=== PATIENT | male | born 1950 | race Caucasian/White ===

== ENCOUNTER → 2017-04-01 10:43 | Outpatient (CLI) | payer OTHER, SELFPAY ==
[2017-04-01 12:41] LABS: Alanine Aminotransferase 40 U/L (12-78); Albumin Level 3.9 gm/dL (3.4-5.0); Albumin/Globulin Ratio 1.3 (1.1-1.8); Alkaline Phosphatase 84 U/L (46-116); Anion Gap 11.4 mEq/L (5-15); Aspartate Amino Transferase 19 U/L (15-37); Bilirubin,Total 1.3 mg/dL (0.2-1.0); Blood Urea Nitrogen 10 mg/dL (7-18); Calcium 8.8 mg/dL (8.5-10.1); Carbon Dioxide 28 mmol/L (21.0-32.0); Chloride 107 mmol/L (98-107); Chol/HDL Ratio 4.3 (1-3.5); Cholesterol 132 mg/dL (140-200); Creatinine,Serum 0.77 mg/dL (0.70-1.30); Estimated Glomerular Filt Rate 102 ml/min (>60); GFR (African American) 123 ML/MIN (>60); Globulin 3.1 gm/dl (1.3-3.2); Glucose 101 mg/dL (74-106); HDL Cholesterol 31 mg/dL (27-67); LDL Cholesterol 78 mg/dL (0-130); Potassium 4.4 mmoL/L (3.5-5.1); Sodium 142 mmol/L (136-145); Triglycerides 116 mg/dL (30-200); VLDL Cholesterol 23 mg/dL (0-40)
== END ==
PROVIDERS: PCP Internal Medicine Adolescent Medicine; Visit Provider Physician Assistant
DX: I25.10 Atherosclerotic heart disease of native coronary artery without angina pectoris (principal); E78.5 Hyperlipidemia, unspecified
CPT/HCPCS: 36415; 80053; 80061

== ENCOUNTER → 2017-09-21 09:42 | Outpatient (CLI) | payer MEDICARE, OTHER, SELFPAY ==
[2017-09-21 10:01] LABS: Basophils % 0.4 % (0.1-2.0); Eosinophils # 0.2 K/mm3 (0.0-0.4); Eosinophils % 2.8 % (0.1-12.0); Hematocrit 45.4 % (42.0-52.0); Hemoglobin 14.6 g/dL (14.1-18.0); Lymphocytes # 1.7 K/mm3 (0.7-4.5); Lymphocytes % 26.5 K/mm3 (10-50); Mean Corpuscular HGB Conc 32.2 g/dL (31.8-35.4); Mean Corpuscular Hemoglobin 30.3 pg (27.0-31.2); Mean Corpuscular Volume 94.4 fl (80-94); Mean Platelet Volume 8.1 fl (7.4-10.4); Monocytes # 0.4 K/mm3 (0.1-1.0); Neutrophils % 64.4 % (37.0-80.0); Platelet Count 198 K/mm3 (142-424); Red Blood Count 4.81 M/mm3 (4.60-6.20); Red Cell Distribution Width 13.5 % (11.5-17.5); White Blood Count 6.3 K/mm3 (4.8-10.8)
[2017-09-21 10:25] LABS: Hemoglobin A1C 5.8 % (0.0-7.0)
[2017-09-21 10:34] LABS: Alanine Aminotransferase 38 U/L (12-78); Albumin Level 3.9 gm/dL (3.4-5.0); Albumin/Globulin Ratio 1.2 (1.1-1.8); Alkaline Phosphatase 92 U/L (46-116); Anion Gap 16.1 mEq/L (5-15); Aspartate Amino Transferase 18 U/L (15-37); Bilirubin,Total 1.7 mg/dL (0.2-1.0); Blood Urea Nitrogen 15 mg/dL (7-18); Calcium 8.6 mg/dL (8.5-10.1); Carbon Dioxide 27 mmol/L (21.0-32.0); Chloride 103 mmol/L (98-107); Chol/HDL Ratio 7.4 (1-3.5); Cholesterol 207 mg/dL (140-200); Creatinine,Serum 0.98 mg/dL (0.70-1.30); Estimated Glomerular Filt Rate 77 ml/min (>60); GFR (African American) 93 ML/MIN (>60); Globulin 3.3 gm/dl (1.3-3.2); Glucose 114 mg/dL (74-106); HDL Cholesterol 28 mg/dL (27-67); LDL Cholesterol 151 mg/dL (0-130); Potassium 4.1 mmoL/L (3.5-5.1); Sodium 142 mmol/L (136-145); Total Protein,Serum 7.2 gm/dL (6.4-8.2); Triglycerides 139 mg/dL (30-200); VLDL Cholesterol 28 mg/dL (0-40)
== END ==
PROVIDERS: Visit Provider Internal Medicine Adolescent Medicine
DX: R73.9 Hyperglycemia, unspecified (principal); E78.5 Hyperlipidemia, unspecified
CPT/HCPCS: 36415; 80053; 80061; 83036; 85025

== ENCOUNTER → 2018-02-02 10:17 | Outpatient (CLI) | payer MEDICARE, SELFPAY ==
[2018-02-02 11:33] LABS: Chol/HDL Ratio 6.8 (1-3.5); Cholesterol 218 mg/dL (140-200); HDL Cholesterol 32 mg/dL (27-67); LDL Cholesterol 163 mg/dL (0-130); Triglycerides 114 mg/dL (30-200); VLDL Cholesterol 23 mg/dL (0-40)
== END ==
PROVIDERS: Visit Provider Physician Assistant
DX: I25.10 Atherosclerotic heart disease of native coronary artery without angina pectoris (principal); E78.5 Hyperlipidemia, unspecified
CPT/HCPCS: 36415; 80061

== ENCOUNTER 2018-02-24 10:00 | Outpatient (RCR) | payer MEDICARE, OTHER, SELFPAY | END 2018-02-24 10:05 | disposition home or self-care (01) | LOC: PT 10:00 | PROVIDERS: Visit Provider Family Medicine | DX: M77.01 Medial epicondylitis, right elbow (principal) | CPT/HCPCS: 97010; 97014; 97035; 97110; 97163; G0283 ==

== ENCOUNTER → 2018-04-20 09:58 | Outpatient (CLI) | payer MEDICARE, OTHER, SELFPAY ==
[2018-04-20 10:33] LABS: Basophils % 0.3 % (0.1-2.0); Eosinophils # 0.1 K/mm3 (0.0-0.4); Eosinophils % 1.4 % (0.1-12.0); Hematocrit 45.7 % (42.0-52.0); Hemoglobin 14.9 g/dL (14.1-18.0); Lymphocytes # 1.7 K/mm3 (0.7-4.5); Lymphocytes % 29.1 % (10-50); Mean Corpuscular HGB Conc 32.7 g/dL (31.8-35.4); Mean Corpuscular Volume 94.8 fl (80-94); Mean Platelet Volume 7.8 fl (7.4-10.4); Monocytes # 0.3 K/mm3 (0.1-1.0); Monocytes % 5.4 % (1.7-9.3); Neutrophils # 3.7 K/mm3 (1.8-7.8); Neutrophils % 63.9 % (37.0-80.0); Platelet Count 200 K/mm3 (142-424); Red Blood Count 4.82 M/mm3 (4.60-6.20); Red Cell Distribution Width 14.2 % (11.5-17.5); White Blood Count 5.8 K/mm3 (4.8-10.8)
[2018-04-20 11:03] LABS: Alanine Aminotransferase 35 U/L (12-78); Albumin Level 3.9 gm/dL (3.4-5.0); Albumin/Globulin Ratio 1.2 (1.1-1.8); Alkaline Phosphatase 84 U/L (46-116); Anion Gap 11.6 mEq/L (5-15); Aspartate Amino Transferase 20 U/L (15-37); Bilirubin,Total 1.6 mg/dL (0.2-1.0); Blood Urea Nitrogen 13 mg/dL (7-18); Calcium 9.3 mg/dL (8.5-10.1); Carbon Dioxide 30 mmol/L (21.0-32.0); Chloride 105 mmol/L (98-107); Chol/HDL Ratio 5.3 (1-3.5); Cholesterol 165 mg/dL (140-200); Creatinine,Serum 0.87 mg/dL (0.70-1.30); Estimated Glomerular Filt Rate 88 ml/min (>60); GFR (African American) 107 ML/MIN (>60); Globulin 3.2 gm/dl (1.3-3.2); Glucose 94 mg/dL (74-106); HDL Cholesterol 31 mg/dL (27-67); LDL Cholesterol 110 mg/dL (0-130); Potassium 4.6 mmoL/L (3.5-5.1); Sodium 142 mmol/L (136-145); Total Protein,Serum 7.1 gm/dL (6.4-8.2); Triglycerides 121 mg/dL (30-200); VLDL Cholesterol 24 mg/dL (0-40)
[2018-04-20 13:07] LABS: Erythrocyte Sedimentation Rate 16 mm/hr (0-20)
[2018-04-20 16:39] LABS: Hemoglobin A1C 5.9 % (0.0-7.0)
[2018-04-21 09:23] LABS: RA Latex Turbid. <10.0 IU/mL (0.0-13.9)
== END ==
PROVIDERS: Visit Provider Internal Medicine Adolescent Medicine
DX: E78.5 Hyperlipidemia, unspecified (principal); R73.9 Hyperglycemia, unspecified; R76.8 Other specified abnormal immunological findings in serum
CPT/HCPCS: 36415; 80053; 80061; 83036; 85025; 85651; 86431

== ENCOUNTER → 2018-10-22 09:41 | Outpatient (CLI) | payer MEDICARE, OTHER, SELFPAY ==
[2018-10-22 10:10] LABS: Basophils % 0.3 % (0.1-2.0); Eosinophils # 0.1 K/mm3 (0.0-0.4); Eosinophils % 1.4 % (0.1-12.0); Hemoglobin 14.1 g/dL (14.1-18.0); Lymphocytes # 1.5 K/mm3 (0.7-4.5); Lymphocytes % 20.6 % (10-50); Mean Corpuscular HGB Conc 32.8 g/dL (31.8-35.4); Mean Corpuscular Volume 94.3 fl (80-94); Mean Platelet Volume 8.1 fl (7.4-10.4); Monocytes # 0.6 K/mm3 (0.1-1.0); Monocytes % 7.8 % (1.7-9.3); Neutrophils # 5.2 K/mm3 (1.8-7.8); Neutrophils % 69.9 % (37.0-80.0); Platelet Count 207 K/mm3 (142-424); Red Blood Count 4.56 M/mm3 (4.60-6.20); Red Cell Distribution Width 13.8 % (11.5-17.5); White Blood Count 7.5 K/mm3 (4.8-10.8)
[2018-10-22 10:42] LABS: Alanine Aminotransferase 29 U/L (12-78); Albumin/Globulin Ratio 1.3 (1.1-1.8); Alkaline Phosphatase 85 U/L (46-116); Anion Gap 12.6 mEq/L (5-15); Aspartate Amino Transferase 18 U/L (15-37); Bilirubin,Total 1.8 mg/dL (0.2-1.0); Blood Urea Nitrogen 16 mg/dL (7-18); Calcium 9.5 mg/dL (8.5-10.1); Carbon Dioxide 31 mmol/L (21.0-32.0); Chloride 104 mmol/L (98-107); Chol/HDL Ratio 5.4 (1-3.5); Cholesterol 162 mg/dL (140-200); Creatinine,Serum 0.91 mg/dL (0.70-1.30); Estimated Glomerular Filt Rate 83 ml/min (>60); GFR (African American) 101 ML/MIN (>60); Globulin 3.2 gm/dl (1.3-3.2); Glucose 97 mg/dL (74-106); HDL Cholesterol 30 mg/dL (27-67); LDL Cholesterol 111 mg/dL (0-130); Potassium 4.6 mmoL/L (3.5-5.1); Sodium 143 mmol/L (136-145); Total Protein,Serum 7.2 gm/dL (6.4-8.2); Triglycerides 106 mg/dL (30-200); VLDL Cholesterol 21 mg/dL (0-40)
[2018-10-22 11:41] LABS: Hemoglobin A1C 5.7 % (0.0-7.0)
== END ==
PROVIDERS: Visit Provider Internal Medicine Adolescent Medicine
DX: E78.5 Hyperlipidemia, unspecified (principal); R73.9 Hyperglycemia, unspecified; M31.6 Other giant cell arteritis
CPT/HCPCS: 36415; 80053; 80061; 83036; 85025

== ENCOUNTER → 2018-12-08 15:34 | Outpatient (CLI) | payer MEDICARE, OTHER, SELFPAY ==
--- NOTE | 2018-12-08 15:39 | XR_ITS ---
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 No acute fracture or dislocation evident. Incidental note is made of mild osteoarthritis of the left hip with an atypical articulation of the facet on the left at S1-S2. There is an os acetabulum on the right IMPRESSION: Mild osteoarthritis of the right hip with incidental findings as described above Dictated by: Kenroy Dunn MD 12/08/2018 16:24 Electronically signed by Kenroy Dunn MD in [place] 12/08/2018 16:24
== END ==
PROVIDERS: PCP Internal Medicine Adolescent Medicine; Visit Provider Internal Medicine Adolescent Medicine
DX: M25.551 Pain in right hip (principal)
CPT/HCPCS: 73502

== ENCOUNTER → 2018-12-14 12:48 | Outpatient (CLI) | payer MEDICARE, OTHER, SELFPAY ==
--- NOTE | 2018-12-14 12:50 | XR_ITS ---
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 Left femoral neck density is 1.047 grams/centimeters sq with a T-score of -0.2 IMPRESSION: Normal bone density with low fracture risk. Suggest follow-up exam December 2020 Dictated by: Kenroy Dunn MD 12/14/2018 16:14 Electronically signed by Kenroy Dunn MD in [place] 12/14/2018 16:14
== END ==
PROVIDERS: PCP Internal Medicine Adolescent Medicine; Visit Provider Internal Medicine Adolescent Medicine
DX: Z13.820 Encounter for screening for osteoporosis (principal); Z79.52 Long term (current) use of systemic steroids
CPT/HCPCS: 77080

== ENCOUNTER 2019-01-25 09:00 | Outpatient (RCR) | payer MEDICARE, OTHER, SELFPAY | END 2019-01-25 09:05 | disposition home or self-care (01) | LOC: PT 09:00 | PROVIDERS: PCP Internal Medicine Adolescent Medicine; Visit Provider Orthopaedic Surgery | DX: M16.11 Unilateral primary osteoarthritis, right hip (principal); M47.811 Spondylosis without myelopathy or radiculopathy, occipito-atlanto-axial region | CPT/HCPCS: 97010; 97014; 97110; 97163; G0283 ==

== ENCOUNTER → 2019-05-24 10:53 | Outpatient (CLI) | payer MEDICARE, OTHER, SELFPAY ==
[2019-05-24 11:16] LABS: Basophils % 0.4 % (0.1-2.0); Eosinophils # 0.2 K/mm3 (0.0-0.4); Eosinophils % 2.3 % (0.1-12.0); Hematocrit 44.7 % (42.0-52.0); Hemoglobin 14.7 g/dL (14.1-18.0); Lymphocytes # 1.7 K/mm3 (0.7-4.5); Lymphocytes % 25.8 % (10-50); Mean Corpuscular HGB Conc 32.8 g/dL (31.8-35.4); Mean Corpuscular Hemoglobin 30.8 pg (27.0-31.2); Mean Corpuscular Volume 93.8 fl (80-94); Mean Platelet Volume 7.8 fl (7.4-10.4); Monocytes # 0.4 K/mm3 (0.1-1.0); Monocytes % 5.8 % (1.7-9.3); Neutrophils # 4.4 K/mm3 (1.8-7.8); Neutrophils % 65.7 % (37.0-80.0); Platelet Count 216 K/mm3 (142-424); Red Blood Count 4.77 M/mm3 (4.60-6.20); Red Cell Distribution Width 14.3 % (11.5-17.5); White Blood Count 6.7 K/mm3 (4.8-10.8)
[2019-05-24 12:10] LABS: Chloride 102 mmol/L (98-107); Potassium 4.9 mmoL/L (3.5-5.1); Sodium 138 mmol/L (136-145)
[2019-05-24 12:13] LABS: Alanine Aminotransferase 24 U/L (12-78); Albumin Level 4.5 g/dl (3.5-5.0); Albumin/Globulin Ratio 1.7 (1.1-1.8); Alkaline Phosphatase 61 U/L (38-126); Anion Gap 12.9 mEq/L (5-15); Aspartate Amino Transferase 26 U/L (17-59); Bilirubin,Total 1.3 mg/dl (0.2-1.3); Blood Urea Nitrogen 14 mg/dl (9-20); Calcium 9.7 mg/dl (8.4-10.2); Carbon Dioxide 28 mmol/L (22.0-30.0); Cholesterol 158 mg/dl (140-200); Estimated Glomerular Filt Rate 97 ml/min (>60); GFR (African American) 117 ML/MIN (>60); Globulin 2.6 g/dL (1.3-3.2); Glucose 103 mg/dl (74-100); Total Protein,Serum 7.1 g/dl (6.3-8.2); Triglycerides 120 mg/dl (30-150); VLDL Cholesterol 24 mg/dL (0-40)
[2019-05-24 12:14] LABS: Chol/HDL Ratio 5.4 (1-3.5); HDL Cholesterol 29 mg/dl (40-60)
[2019-05-24 12:25] LABS: Direct LDL Cholesterol 136.79 mg/dL (100-129)
[2019-05-25 07:18] LABS: RA Latex Turbid. 11.5 IU/mL (0.0-13.9)
== END ==
PROVIDERS: Visit Provider Internal Medicine Adolescent Medicine
DX: E78.5 Hyperlipidemia, unspecified (principal); M15.0 Primary generalized (osteo)arthritis; R76.8 Other specified abnormal immunological findings in serum
CPT/HCPCS: 36415; 80053; 80061; 85025; 86431

== ENCOUNTER → 2019-06-05 07:57 | Outpatient (POV) | payer MEDICARE, OTHER, SELFPAY ==
[2019-06-05 08:16] VITALS: BP 127/85; PULSE 60; RESP 18; TEMP 36.6; O2SAT 98; BMI 33.9
--- NOTE | 2019-06-05 09:54 | HMH.PMCON ---
Assessment and Plan (1) Sacroiliitis Current visit: Yes Status: Chronic Category: Medical Code(s): M46.1 - Sacroiliitis, not elsewhere classified (2) Myofascial pain syndrome Current visit: Yes Status: Chronic Category: Medical Code(s): M79.18 - Myalgia, other site (3) Piriformis muscle pain Current visit: Yes Status: Chronic Category: Medical Code(s): M79.18 - Myalgia, other site - Assessment and plan all Dx Assessment and Plan for all problems:: We will set the patient up for right SI joint injection right piriformis injection. We will follow-up with the patient after this reassess his symptoms at that time he is been instructed to call the office if he has any issues prior to his next appointment. We specifically discussed risk factors for Covid-19 including age, heart or lung disease, diabetes, immunosuppression and travel. We also discussed that NSAIDs may worsen Covid-19 infection symptoms and that they should not be used to treat Covid-19 symptoms. Patient was also informed that corticosteroids in any form oral or injectable will decrease immune response and may increase risk of Covid-[address] Serrano has reviewed this patient's chart and this note and agrees with plan of care. Patient has been instructed to call the office if they have any issues prior to the next appointment. HPI - Data of Consult Consult date: 06/05/19 Requesting Physician: Anay Molina APRN Primary Care Provider: Jonathan Craft MD - Consult Narrative Reason for consult: SI joint pain History of present illness: Mr. Briceño is a 68 year old male who presents today for consultation regards to his right SI joint pain. Patient has had this pain off and on for quite some time. He is had injections in the past which were extremely beneficial. Patient is also stating that he has pain in his piriformis muscle. Patient and I had a long discussion in regards to treatments including SI joint belt, stretching. Patient is recently finished physical therapy. After his last injection by [facility] he had up to 80% relief for several months. We will repeat this injection. I do believe he may need several rounds in order to get complete relief. He rates his pain a 7 out of 10. He states that bending lifting sitting makes his pain worse well rest ice and heat decreases pain. He does have a positive Prince test Amol's test and SI joint compression test on the right side. CC: Anay Molina APRN [facility] History I have reviewed the patient's past medical history: Yes Medical History: Reports:: Hyperlipidemia, Hypertension Denies:: Cancer, Diabetes Mellitus Type 1, Diabetes Mellitus Type 2, Internal Pacemaker, MRSA *Have you ever received a pneumonia vaccine?: Yes *Have you received a flu vaccine this season?: Yes Other Medical History: Reports: Arthritis Other Surgeries: Yes: Cardiac Catheterization. No: Pacemaker Amputation: No Fractures: No - *Social History Smoking Status: Never smoker Alcohol Intake: never *Occupational Status:: other Housing: other Household Members: spouse *Travel in the last 8 weeks: None Family Hx:: Unable to obtain Review of Systems - Review of Systems ROS General: no recent weight change, no fever, no sleep disturbances Respiratory: no cough, no shortness of air, no recurring pulmonary infections Cardiovascular/Peripheral Vascular: No chest pain, No palpitations, no edema, no shortness of breath. Gastrointestinal: no new onset incontinence, normal bowel movements reported Genitourinary: no new onset incontinence Musculoskeletal: SI joint pain, piriformis pain Psychiatric: normal mood/ affect Neurological: [denies new onset weakness in extremities], [denies new onset balance issues] Meds Home Medications Medication Instructions Recorded Confirmed Type Celecoxib 400 mg PO BID 06/05/19 06/05/19 History Clopidogrel Bisulfate [Clopidog
== END ==
PROVIDERS: PCP Internal Medicine Adolescent Medicine; Visit Provider Clinical Nurse Specialist Family Health
DX: M46.1 Sacroiliitis, not elsewhere classified (principal); M79.18 Myalgia, other site
CPT/HCPCS: 99202

== ENCOUNTER → 2019-06-12 10:23 | Outpatient (CLI) | payer MEDICARE, OTHER, SELFPAY ==
[2019-06-13 08:59] LABS: Covid-19 Nasal PCR Sendout Lex NOT DETECTED
--- NOTE | 2019-06-13 10:09 | PC.NURSE ---
0938-pt and Tim ANDINO notified of negative COVID 19 results.
== END ==
PROVIDERS: Visit Provider Anesthesiology
DX: Z03.818 Encounter for observation for suspected exposure to other biological agents ruled out (principal)
CPT/HCPCS: U0003

== ENCOUNTER 2019-06-14 11:17 | Day surgery (SDC) | payer MEDICARE, OTHER, SELFPAY ==
[2019-06-14 11:53] VITALS: BP 150/83; PULSE 66; RESP 18; TEMP 36.4; O2SAT 98; BMI 30.8
[2019-06-14 13:00] VITALS: BP 115/58; PULSE 52; RESP 18
[2019-06-14 13:01] VITALS: BP 116/58; PULSE 55; RESP 18; O2SAT 98
--- NOTE | 2019-06-14 13:07 | P.PCN_ITS ---
- Procedure Date: 06/14/19 Time: 13:07 Anesthesiologist:: Alek Serrano MD Complications:: None Pre-procedure Diagnosis:: Sacroiliitis and right-sided sciatica Post-procedure Diagnosis:: Same Indications for Procedure:: This patient is a pleasant 68-year-old white male who we have been treating for right-sided hip pain. He is tender over his right SI joint. He has chronic right-sided sacroiliitis. He has a positive Amol's test on the right side. He has a positive SI joint compression test on the right side. He has a positive Prince test on the right side. We will do a right SI joint injection under fluoroscopy today. He also has some right-sided sciatica. We will do a right- sided piriformis muscle injection as well. Procedure Details:: Right SI joint injection under fluoroscopy Informed consent was obtained and the risks and benefits of the procedure was going to the patient. Patient was taken to the procedure room. Patient was placed prone on the procedure table. The right hip was prepped using ChloraPrep. The skin and subcutaneous tissues were anesthetized using lidocaine. I placed a 22-gauge spinal needle into the inferior aspect of the right SI joint. Needle placement was confirmed with dye. After this we injected 5 mL bupivacaine 0.25% and Depo-Medrol 40 mg into the right SI joint. The patient tolerated the procedure well with no complication. Right piriformis muscle/sciatic nerve block Informed consent was obtained risk and benefits of the procedure were explained to the patient. The right buttock was prepped using ChloraPrep. A 25-gauge needle was used and we injected 10 mL bupivacaine 0.25% and Depo-Medrol 40 mg into the area of the right sciatic nerve and right piriformis muscle. Patient tolerated the procedure well with no complications. Plan and Disposition:: We will follow-up with him in 2 weeks. Will reevaluate symptoms at that time.
[2019-06-14 13:10] VITALS: BP 137/80; PULSE 50; RESP 20; O2SAT 98
== END 2019-06-14 13:10 | disposition home or self-care (01) ==
LOC: SC.PAINP 11:19
PROVIDERS: PCP Internal Medicine Adolescent Medicine; Visit Provider Anesthesiology
DX: M46.1 Sacroiliitis, not elsewhere classified (principal); M54.31 Sciatica, right side; I10 Essential (primary) hypertension; E78.5 Hyperlipidemia, unspecified
CPT/HCPCS: 27096; 64445; G0260; J1030; Q9966

== ENCOUNTER → 2019-06-26 15:08 | Outpatient (POV) | payer MEDICARE, OTHER, SELFPAY ==
[2019-06-26 15:36] VITALS: BP 133/81; PULSE 72; RESP 18; TEMP 36.8; O2SAT 98; BMI 30.8
--- NOTE | 2019-06-27 07:58 | HMH.PAINSOAP ---
[facility] Pain Management SOAP Note Subjective:: Patient is a pleasant 68-year-old white male who presents today for follow-up after a right SI joint injection. Patient did not get much relief from this. Patient rates his pain a 3 out of 10. Patient has gotten good relief with these injections in the past. Up to 80% for several months however it was coupled with physical therapy. We discussed options including an SI joint ablation and coronary lock procedure. Patient and I discussed utilizing 1 more injection to see if this benefits with continued stretching program and also start him on gabapentin 100 mg at nighttime. ROS General: no recent weight change, no fever, no sleep disturbances Respiratory: no cough, no shortness of air, no recurring pulmonary infections Cardiovascular/Peripheral Vascular: No chest pain, No palpitations, no edema, no shortness of breath. Gastrointestinal: no new onset incontinence, normal bowel movements reported Genitourinary: no new onset incontinence Musculoskeletal: SI joint pain on the right side Psychiatric: normal mood/ affect, [denies depression], [denies anxiety] Neurological: [denies new onset weakness in extremities], Objective:: Physical Exam General: Alert and oriented x3, no acute distress, pleasant and cooperative, Lungs: Resps E/U, Symmetrical chest expansion, Eyes: PERRL Musculoskeletal: Flexion and extension of lumbar spine somewhat guarded secondary to pain, deep tendon reflexes normal, strength in upper and lower extremities [5/5], antalgic gait noted, positive Prince test SI joint compression test and Amol's test/Kiel's test on the right side Neurological: speech clear, intensive care unit nurse equal, no gross sensory deficits Assessment:: Sacroiliitis Plan:: We will start him on gabapentin 100 mg 1 p.o. nightly and order an right SI joint injection. If this is not beneficial we will discuss an ablation/potential corneal arcus. Dr. Serrano has reviewed this note and agrees with this plan of care. This note was dictated using voice recognition software and may contain errors or omissions [facility] History I have reviewed the patient's past medical history: Yes Medical History: Reports:: Hyperlipidemia, Hypertension Denies:: Cancer, Diabetes Mellitus Type 1, Diabetes Mellitus Type 2, Internal Pacemaker, MRSA, Seizures *Have you ever received a pneumonia vaccine?: Yes *Have you received a flu vaccine this season?: Yes Other Medical History: Reports: Arthritis Other Surgeries: Yes: Cardiac Catheterization. No: Pacemaker Amputation: No Fractures: No - *Social History Smoking Status: Never smoker Alcohol Intake: never *Occupational Status:: other Housing: other Household Members: spouse *Travel in the last 8 weeks: None Family Hx:: Unable to obtain
== END ==
PROVIDERS: PCP Internal Medicine Adolescent Medicine; Visit Provider Clinical Nurse Specialist Family Health
DX: M46.1 Sacroiliitis, not elsewhere classified (principal)
CPT/HCPCS: 99212

== ENCOUNTER 2019-07-04 14:32 | Day surgery (SDC) | payer MEDICARE, OTHER, SELFPAY ==
[2019-07-04 14:54] VITALS: BP 126/75; PULSE 84; RESP 18; TEMP 36.8; O2SAT 97; BMI 30.8
[2019-07-04 15:23] VITALS: BP 125/85; BP 131/88; PULSE 73; PULSE 85; RESP 18; O2SAT 98; O2SAT 99
--- NOTE | 2019-07-04 15:32 | HMH.PMPROC ---
- Procedure Date: 07/04/19 Time: 15:32 Anesthesiologist:: Anay Molina APRN Complications:: None Pre-procedure Diagnosis:: Right SI joint pain and sacroiliitis Post-procedure Diagnosis:: Same Indications for Procedure:: Patient is a pleasant 69-year-old white male who presents today for SI joint injection on the right side. He gets some relief from this. He rates his pain today a 4 out of 10. He was not sleeping and we started gabapentin 100 mg at nighttime which he states has been beneficial. Patient may be a candidate for a corneal walk procedure. Physical Exam General: Alert and oriented x3, no acute distress, pleasant and cooperative, [on room air] Lungs: Resps E/U, Symmetrical chest expansion, Eyes: PERRL Musculoskeletal: Flexion and extension of lumbar spine somewhat guarded secondary to pain, deep tendon reflexes normal, strength in upper and lower extremities [5/5], [abnormal gait noted] positive Prince test Kiel's test and SI joint compression test on the right side Neurological: speech clear, plasterer spray gun equal, no gross sensory deficits Procedure Details:: Informed consent was obtained and the risks and benefits of the procedure were explained to the patient. Patient was taken to the procedure room. Patient was placed prone on the procedure table. The [right] hip was prepped using ChloraPrep as a cleansing solution. The skin and subcutaneous tissues were anesthetized using lidocaine. Using fluoroscopic guidance I placed a 22-gauge spinal needle into the inferior aspect of the [right] SI joint. After this I injected 5 mL bupivacaine 0.25% and Depo-Medrol 40 mg into the [right] SI joint. The patient tolerated the procedure well with no complication. Plan and Disposition:: I will follow-up with the patient several weeks reassess his symptoms at that time. He has been instructed to call the office if he has any issues prior to his next appointment. Dr. Serrano has reviewed this note and agrees with this plan of care. This note was dictated using voice recognition software and may contain errors or omissions
[2019-07-04 15:38] VITALS: BP 132/80; PULSE 70; RESP 20; O2SAT 97
== END 2019-07-04 15:38 | disposition home or self-care (01) ==
LOC: SC.PAINP 14:34
PROVIDERS: PCP Internal Medicine Adolescent Medicine; Visit Provider Clinical Nurse Specialist Family Health
DX: M46.1 Sacroiliitis, not elsewhere classified (principal); I10 Essential (primary) hypertension; E78.5 Hyperlipidemia, unspecified; Z86.79 Personal history of other diseases of the circulatory system
CPT/HCPCS: 27096; G0260; J1040; Q9966

== ENCOUNTER → 2019-07-25 11:34 | Outpatient (POV) | payer MEDICARE, OTHER, SELFPAY ==
[2019-07-25 12:07] VITALS: BP 136/85; PULSE 72; RESP 18; O2SAT 99; BMI 30.8
--- NOTE | 2019-07-25 12:15 | P.CONS_ITS ---
[facility] Pain Management SOAP Note Subjective:: Patient is a pleasant 69-year-old white male who presents today for follow-up. Patient has had SI joint injections with good relief. Today he is complaining of a new pain. Is higher in nature is very focal in his low back. He has difficulty with twisting and turning. He rates his pain a 3 out of 10. He is tender over his facet joints of his lumbar spine. ROS General: no recent weight change, no fever, no sleep disturbances Respiratory: no cough, no shortness of air, no recurring pulmonary infections Cardiovascular/Peripheral Vascular: No chest pain, No palpitations, no edema, no shortness of breath. Gastrointestinal: no new onset incontinence, normal bowel movements reported Genitourinary: no new onset incontinence Musculoskeletal: Back pain Psychiatric: normal mood/ affect Neurological: [denies new onset weakness in extremities], [denies new onset balance issues] Objective:: Physical Exam General: Alert and oriented x3, no acute distress, pleasant and cooperative, [on room air] Lungs: Resps E/U, Symmetrical chest expansion, Eyes: PERRL Musculoskeletal: Flexion and extension of lumbar spine somewhat guarded secondary to pain, deep tendon reflexes normal, strength in upper and lower extremities [5/5], slightly antalgic gait noted Neurological: speech clear, health careers instructor equal, no gross sensory deficits Assessment:: 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 He is on Plavix from Dr. Gomes. We will ensure that he has permission to come off prior to the injection. He understands it that it is diagnostic in nature. He may be a neurotomy candidate. He is been instructed to call the office if he has any issues prior to his next appointment. Dr. Serrano has reviewed this note and agrees with this plan of care. This note was dictated using voice recognition software and may contain errors or omissions [facility] History I have reviewed the patient's past medical history: Yes Medical History: Reports:: Hyperlipidemia, Hypertension Denies:: Cancer, Diabetes Mellitus Type 1, Diabetes Mellitus Type 2, Internal Pacemaker, MRSA, Seizures *Have you ever received a pneumonia vaccine?: Yes *Have you received a flu vaccine this season?: Yes Other Medical History: Reports: Arthritis Other Surgeries: Yes: Cardiac Catheterization. No: Pacemaker Amputation: No Fractures: No - *Social History Smoking Status: Never smoker Alcohol Intake: never *Occupational Status:: other Housing: other Household Members: spouse *Travel in the last 8 weeks: None Family Hx:: Unable to obtain
== END ==
PROVIDERS: PCP Internal Medicine Adolescent Medicine; Visit Provider Clinical Nurse Specialist Family Health
DX: M51.36 Other intervertebral disc degeneration, lumbar region (principal); M12.88 Other specific arthropathies, not elsewhere classified, other specified site
CPT/HCPCS: 99212

== ENCOUNTER 2019-08-04 13:25 | Day surgery (SDC) | payer MEDICARE, OTHER, SELFPAY ==
[2019-08-04 14:19] VITALS: BP 117/72; PULSE 76; RESP 18; TEMP 36.7; O2SAT 96; BMI 30.8
--- NOTE | 2019-08-04 14:55 | HMH.PMPROC ---
- Procedure Date: 08/04/19 Time: 14:55 Anesthesiologist:: Alek Serrano MD Complications:: None Pre-procedure Diagnosis:: Sacroiliitis and degenerative disc disease of lumbar spine with facet arthropathy of lumbar spine Post-procedure Diagnosis:: Same Indications for Procedure:: This patient is a pleasant 69-year-old white male who we have been treating for sacroiliitis and right-sided low back pain. He was scheduled for bilateral facet joint injections of L4-5 and L5-S1. He is only stopped his Plavix for 5 days. We will hold on the facet joint injections and do a repeat right SI joint injection under fluoroscopy instead today. Procedure Details:: Right SI joint injection under fluoroscopy Informed consent was obtained and the risks and benefits of the procedure was going to the patient. Patient was taken to the procedure room. Patient was placed prone on the procedure table. The right hip was prepped using ChloraPrep. The skin and subcutaneous tissues were anesthetized using lidocaine. I placed a 22-gauge spinal needle into the inferior aspect of the right SI joint. Needle placement was confirmed with dye. After this we injected 5 mL bupivacaine 0.25% and Depo-Medrol 40 mg into the right SI joint. The patient tolerated the procedure well with no complication. Plan and Disposition:: We will follow-up with him next Wednesday. Will reevaluate his symptoms. We will plan on right sided facet joint injections of L3-L4, L4-5 and L5-S1 at that time. He is to remain off of his Plavix.
[2019-08-04 15:00] VITALS: BP 122/76; PULSE 62; RESP 18; O2SAT 96
== END 2019-08-04 15:00 | disposition home or self-care (01) ==
LOC: SC.PAINP 13:26
PROVIDERS: PCP Internal Medicine Adolescent Medicine; Visit Provider Anesthesiology
DX: M46.1 Sacroiliitis, not elsewhere classified (principal); M51.36 Other intervertebral disc degeneration, lumbar region; M12.88 Other specific arthropathies, not elsewhere classified, other specified site; I10 Essential (primary) hypertension; E78.5 Hyperlipidemia, unspecified; Z87.442 Personal history of urinary calculi; Z86.79 Personal history of other diseases of the circulatory system; Z80.9 Family history of malignant neoplasm, unspecified; Z82.3 Family history of stroke; Z82.49 Family history of ischemic heart disease and other diseases of the circulatory system; Z88.8 Allergy status to other drugs, medicaments and biological substances; Z79.899 Other long term (current) drug therapy
CPT/HCPCS: 27096; G0260; J1030; Q9966

== ENCOUNTER 2019-08-11 09:05 | Day surgery (SDC) | payer MEDICARE, OTHER, SELFPAY ==
[2019-08-11 09:57] VITALS: BP 162/89; PULSE 59; RESP 18; TEMP 36.6; O2SAT 97; BMI 34.7
[2019-08-11 10:12] VITALS: BP 140/78; BP 145/85; PULSE 85; RESP 18; O2SAT 99
[2019-08-11 10:27] VITALS: BP 135/79; PULSE 51; RESP 18; O2SAT 97
--- NOTE | 2019-08-11 10:56 | P.PCN_ITS ---
- Procedure Date: 08/11/19 Time: 10:56 Anesthesiologist:: Alek Serrano MD Complications:: None Pre-procedure Diagnosis:: Degenerative disc disease of lumbar spine with facet arthropathy of lumbar spine and lumbar spondylosis Post-procedure Diagnosis:: Same Indications for Procedure:: This patient is a pleasant 69-year-old white male who been treating for right- sided low back pain. It does radiate into the hip. He did not get much benefit from his right SI joint injection. He is been off of his Plavix for 1 week. We will do right-sided lumbar facet joint injection/medial branch blocks of L3-L4, 4 5 and L5-S1 today. Procedure Details:: Lumbar medial branch block Informed consent was obtained and the risks and benefits of the procedure was explained to the patient. The back was prepped using ChloraPrep. The skin and subcutaneous tissues were anesthetized using lidocaine. I placed 22-gauge spinal needles into the facet joint/medial branches of L3-L4, L4-L5 and L5-S1 bilaterally. Needle placement was confirmed with dye. After this we injected 3 mL bupivacaine 0.25% and Depo-Medrol 13 mg into each facet joint/medial branch of L3-L4, L5 and L5-S1 on the right side. We used a total of 40 mg Depo-Medrol for all 3 levels on the right side. The patient tolerated the procedure well with no complications. Plan and Disposition:: We will follow-up with him in 2 weeks. Will reevaluate symptoms at that time. If successful we will plan on RFA to the facet joints on the right side of L3- L4, L4-5 and L5-S1.
== END 2019-08-11 10:28 | disposition home or self-care (01) ==
LOC: SC.PAINP 09:07
PROVIDERS: PCP Internal Medicine Adolescent Medicine; Visit Provider Anesthesiology
DX: M51.36 Other intervertebral disc degeneration, lumbar region (principal); M47.816 Spondylosis without myelopathy or radiculopathy, lumbar region; M12.88 Other specific arthropathies, not elsewhere classified, other specified site; I10 Essential (primary) hypertension; I25.10 Atherosclerotic heart disease of native coronary artery without angina pectoris; M46.1 Sacroiliitis, not elsewhere classified; M79.18 Myalgia, other site; Z79.899 Other long term (current) drug therapy
CPT/HCPCS: 64493; 64494; 64495; J1040; Q9966

== ENCOUNTER → 2019-08-28 10:42 | Outpatient (POV) | payer MEDICARE, OTHER, SELFPAY ==
[2019-08-28 11:45] VITALS: BP 140/85; PULSE 85; RESP 18; O2SAT 99; BMI 42.0
--- NOTE | 2019-08-28 14:46 | HMH.PAINSOAP ---
[facility] Pain Management SOAP Note Subjective:: Patient is a pleasant 69-year-old white male who presents today for follow-up after medial branch block/facet joint injections at L3-L4 L4-L5 and L5-S1 bilaterally. He is being treated for low back pain that is worse right side. Patient does report that he got approximately 80% relief following the injection. He says that he is continuing to have relief, however, he is feeling some of the pain returned. He says that all the pain did not go away, did give him relief. He is complaining of a soreness to the area. Patient and I did have a long discussion today with his symptoms. Patient is concerned that he has new issues with his back that has not been detected due to no recent imaging. He and I did discuss possible repeat injections or RFA. Per last note Dr. 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 He has had physical therapy and did undergo a a back surgery in [address] Brody. He says at that time he had a herniated disc at L3-L4 and was noted to have a 6 mm fragment removal. He would like to see if he has any other herniated disks due to a change in his symptoms. Patient does say that his pain is worse with leaning forward and internally his waist. Patient I did discuss that this is much like his previous symptoms that he describes, however, he does say the pain is different. His pain a 3 out of 10 today. Review of Systems General: No recent weight changes, no fever, no sleep disturbances Respiratory: No cough, no shortness of air, no recurring pulmonary infections Cardiovascular/peripheral vascular: No chest pain, no palpitations, no edema, no shortness of breath Gastrointestinal: No new onset incontinence, normal bowel movements reported Genitourinary: No new onset incontinence Musculoskeletal: Low back pain Psychiatric: Normal mood/affect Neurological: [Denies weakness in extremities], [denies balance issues]. Objective:: Physical exam General: Alert and oriented x3, no acute distress, pleasant and cooperative, [on room air] Lungs: Respirations even and unlabored, symmetrical chest expansion Eyes: PERRL Musculoskeletal: Flexion and extension of lumbar spine somewhat guarded secondary to pain, deep tendon reflexes normal, strength in upper and lower extremities [5/5], [abnormal gait noted], positive Kemps test Neurological: Speech clear, oil burner equal, no gross sensory deficit Assessment:: Degenerative disc disease lumbar spine with lumbar radiculopathy symptoms, facet arthropathy of lumbar spine and lumbar spondylosis Plan:: Patient does not want to proceed with further injective therapy until he undergoes a CT scan of his lumbar spine. He is unable to have an MRI due to a cochlear implant. We will proceed with a CT scan of his lumbar spine and see him back in the clinic afterwards to reassess his symptoms. Patient has been instructed to contact the clinic if he has any concerns before his next appointment. The patient and I specifically discussed risk factors for COVID19. These risks include, but are not limited to age greater than 60, heart or lung disease, diabetes, immunosuppression, and travel. We also discussed NSAIDs may worsen COVID19 infection or symptoms. Patient should not use NSAIDs to treat COVID19 signs or symptoms. Patient was also informed that any type of corticosteroid of any form (oral or injection) will decrease the patient's immune system response and may increase the likelihood of COVID19 infection [address] symptoms[address] Serrano has reviewed this note and agrees with this plan of care. This note was dictated using voice recognition software and make contain errors or omissions. [facility] History I have reviewed the patient's past m
== END ==
PROVIDERS: PCP Internal Medicine Adolescent Medicine; Visit Provider Clinical Nurse Specialist Family Health
DX: M51.16 Intervertebral disc disorders with radiculopathy, lumbar region (principal); M47.896 Other spondylosis, lumbar region; M12.88 Other specific arthropathies, not elsewhere classified, other specified site
CPT/HCPCS: 99212

== ENCOUNTER → 2019-09-04 13:33 | Outpatient (CLI) | payer MEDICARE, OTHER, SELFPAY ==
--- NOTE | 2019-09-04 13:36 | CT_ITS ---
PROCEDURE: CT LUMBAR SPINE WO CON CLINICAL HISTORY: BACK PAIN Low-back pain. COMPARISON: No exams were available for comparison TECHNIQUE: Axial images obtained with sagittal and coronal reformats. All CT scans at the facility use one or more dose reduction, viz: automated exposure control, ma/kV adjustment per patient size (including targeted exams where dose is matched to indication, i.e. head), or iterative reconstruction technique. FINDINGS: There is a normal lumbar lordosis. No substantial scoliosis. The vertebral bodies maintain normal alignment without spondylolisthesis. No acute fracture is identified. Lumbar vertebral body and disc space heights are maintained. L1-L2: No posterior annular disc bulging or protrusion. Normal central canal. Intervertebral neural foramina and facet joints are unremarkable. L2-L3: Mildly decreased disc height. Circumferential annual disc bulging, greater to the left with moderate grade central canal and left neural foraminal stenosis. L3-L4: Minimal decreased disc height. Circumferential annular disc bulging greater to the left moderate grade central canal and left neural foraminal stenosis. Increased left facet joint space. L4-L5: Broad-based disc bulge. Left-side posterior laterally a moderately large size disc osteophyte is seen with severe left-side and moderate right-side neural foraminal stenosis. Moderate central canal stenosis. L5-S1: Broad-based disc bulge without significant neural foraminal or central canal stenosis is seen. Diffuse atheromatous calcification of the abdominal aorta and iliac arteries. IMPRESSION: 1.L2-L3: Posterior noncompressive annular disc bulging. 2. L3-L4: Circumferential annular disc bulging eccentrically greater to the left with moderate grade left neural foraminal stenosis and with central canal stenosis. 3. Circumferential annular disc bulging at L4-L5 with a moderately large-sized left-sided disc is seen with severe left-side and moderate right-side neural foraminal stenosis and with moderate central canal stenosis. Dictated by: Bhaskra Bergeron 09/05/2019 10:59 Electronically signed by Bhaskar Bergeron in [place] 09/05/2019 10:59
== END ==
PROVIDERS: PCP Internal Medicine Adolescent Medicine; Visit Provider Clinical Nurse Specialist Family Health
DX: M54.5 Low back pain (principal)
CPT/HCPCS: 72131

== ENCOUNTER → 2019-09-14 10:28 | Outpatient (POV) | payer MEDICARE, OTHER, SELFPAY ==
[2019-09-14 10:42] VITALS: BP 142/65; PULSE 71; RESP 18; TEMP 36.7; O2SAT 98; BMI 30.8
--- NOTE | 2019-09-14 11:09 | HMH.PAINSOAP ---
[facility] Pain Management SOAP Note Subjective:: Patient is a 69-year-old white male who presents today for follow-up after CT scan of his lumbar spine without contrast. He has been treated for low back pain with lumbar radiculopathy symptoms. He has undergone medial branch block/facet joint injections and RFA's in the past. He does get relief, however, his pain has returned. Patient states his pain is worse with leaning forward. He also complains of a right calf pain he rates his pain a 6 out of 10 today. Patient did undergo a CT scan and is here today to discuss the results. Patient does not want to undergo any type of injective therapy until further discretion of his imaging. Review of Systems General: No recent weight changes, no fever, no sleep disturbances Respiratory: No cough, no shortness of air, no recurring pulmonary infections Cardiovascular/peripheral vascular: No chest pain, no palpitations, no edema, no shortness of breath Gastrointestinal: No new onset incontinence, normal bowel movements reported Genitourinary: No new onset incontinence Musculoskeletal: Low back pain worse with leaning forward, right calf pain Psychiatric: Normal mood/affect Neurological: [Denies weakness in extremities], [denies balance issues] Objective:: Physical exam General: Alert and oriented x3, no acute distress, pleasant and cooperative, [on room air] Lungs: Respirations even and unlabored, symmetrical chest expansion Eyes: PERRL Musculoskeletal: Flexion and extension of lumbar spine somewhat guarded secondary to pain, deep tendon reflexes normal, strength in upper and lower extremities [5/5], [abnormal gait noted] Neurological: Speech clear, chief underwriter equal, no gross sensory deficit Assessment:: Degenerative disc disease lumbar spine with lumbar radiculopathy symptoms, facet arthropathy lumbar spine and lumbar spondylosis Plan:: Patient I had a long discussion concerning his CT results. He does have spinal stenosis due to his CT scan. We did discuss this. He does say, however, his pain is not improved with leaning forward. He has gotten relief with the RFA's in the past. Pain did return. He does not want to proceed with further RFA's. He does not want to proceed with any type of minimally invasive procedures. He does not want to proceed with any type of treatment until he discusses his prognosis and results with Dr. Serrano himself. We will schedule him to discuss symptoms with Dr. cervantes. We will see him back in the clinic afterwards to reassess his symptoms. He has been instructed to contact the clinic if he has any concerns before his next appointment. The patient and I specifically discussed risk factors for COVID19. These risks include, but are not limited to age greater than 60, heart or lung disease, diabetes, immunosuppression, and travel. We also discussed NSAIDs may worsen COVID19 infection or symptoms. Patient should not use NSAIDs to treat COVID19 signs or symptoms. Patient was also informed that any type of corticosteroid of any form (oral or injection) will decrease the patient's immune system response and may increase the likelihood of COVID19 infection [address] symptoms[address] Serrano has reviewed this note and agrees with this plan of care. This note was dictated using voice recognition software and make contain errors or omissions. [facility] History I have reviewed the patient's past medical history: Yes Medical History: Reports:: Hyperlipidemia, Hypertension Denies:: Cancer, Diabetes Mellitus Type 1, Diabetes Mellitus Type 2, Internal Pacemaker, MRSA, Seizures *Have you ever received a pneumonia vaccine?: Yes *Have you received a flu vaccine this season?: Yes Other Medical History: Reports: Arthritis Other Surgeries: Yes: Cardiac Catheterization. No: Pacemaker Amputation: No Fractures: No - *Social History Smoking Status: Never smoker Alcohol Intake: never *Occupational Status:: other Housing: house Household Members: spou
== END ==
PROVIDERS: PCP Internal Medicine Adolescent Medicine; Visit Provider Clinical Nurse Specialist Family Health
DX: M51.16 Intervertebral disc disorders with radiculopathy, lumbar region (principal); M12.88 Other specific arthropathies, not elsewhere classified, other specified site; M47.896 Other spondylosis, lumbar region
CPT/HCPCS: 99212

== ENCOUNTER → 2019-09-22 08:21 | Outpatient (POV) | payer MEDICARE, OTHER, SELFPAY ==
[2019-09-22 08:38] VITALS: BP 172/93; PULSE 73; RESP 18; TEMP 36.6; O2SAT 99; BMI 30.8
--- NOTE | 2019-09-22 10:14 | HMH.PAINSOAP ---
[facility] Pain Management SOAP Note Subjective:: This patient is a pleasant 69-year-old white male who we are seeing for low back pain with lumbar spondylosis and facet arthropathy. He does not really have too much in the way of radicular symptoms. He is previously undergone medial branch blocks with significant relief 80 to 90% of his pain symptoms better for 8 to 9 days. He did undergo a CT scan of his lumbar spine. He has had previously had discectomy done by Dr. Brody in 2018. His back certainly has worsened given his current CT scan. It does show significant degenerative changes with bulging disc and neuroforaminal narrowing at L2-L3, L3-L4 and L4-L5. I have talked to the patient about his pain symptoms and discussed proceeding with radiofrequency ablation of the facet joints of L4-5 and L5-S1 as he did get significant relief with his medial branch blocks. We will seek approval for bilateral RFA of the facet joint/medial branches of L4-5 and L5-S1. We will also schedule a consultation with Dr. Brody to see if he needs any surgical intervention. Objective:: Alert and oriented x3 no acute distress. Patient does have an antalgic gait. Motor strength in lower extremities is 5/5. There are no gross sensory deficit. Increased pain with extension. Increase pain with twisting. He has tenderness over lower lumbar spine. Motor strength of the lower extremities is 5/5. There is no gross sensory deficit. Assessment:: Degenerative disc disease of lumbar spine with lumbar radiculopathy symptoms and lumbar spondylosis with facet arthropathy of lumbar spine. Plan:: We will seek approval for bilateral RFA of the facet joint/medial branches of L4-5 and L5-S1. We will also schedule a consultation with Dr. Brody to see if he needs any surgical intervention. [facility] History Medical History: Reports:: Hyperlipidemia, Hypertension Denies:: Cancer, Diabetes Mellitus Type 1, Diabetes Mellitus Type 2, Internal Pacemaker, MRSA, Seizures *Have you ever received a pneumonia vaccine?: No *Have you received a flu vaccine this season?: No Other Medical History: Reports: Arthritis Other Surgeries: Yes: Cardiac Catheterization. No: Pacemaker Amputation: No Fractures: No - *Social History Smoking Status: Never smoker Alcohol Intake: never *Occupational Status:: retired Housing: house Household Members: spouse *Travel in the last 8 weeks: None Family Hx:: Cancer, Heart Attack, Stroke
== END ==
PROVIDERS: PCP Internal Medicine Adolescent Medicine; Visit Provider Anesthesiology
DX: M51.16 Intervertebral disc disorders with radiculopathy, lumbar region (principal); M47.896 Other spondylosis, lumbar region; M12.88 Other specific arthropathies, not elsewhere classified, other specified site
CPT/HCPCS: 99212

== ENCOUNTER 2019-09-29 08:43 | Day surgery (SDC) | payer MEDICARE, OTHER, SELFPAY ==
[2019-09-29 08:51] VITALS: BP 136/82; PULSE 57; RESP 18; TEMP 36.4; O2SAT 99; BMI 30.8
[2019-09-29 09:11] VITALS: BP 142/85; PULSE 62; RESP 18; O2SAT 98
[2019-09-29 09:16] VITALS: BP 142/85; PULSE 64; RESP 18; O2SAT 98
--- NOTE | 2019-09-29 09:16 | HMH.PMPROC ---
- Procedure Date: 09/29/19 Time: 09:16 Anesthesiologist:: Alek Serrano MD Complications:: None Pre-procedure Diagnosis:: Degenerative disc disease of lumbar spine with lumbar facet arthropathy and lumbar spondylosis Post-procedure Diagnosis:: Same Indications for Procedure:: This patient is a pleasant 69-year-old white male who we are treating for low back pain with lumbar spondylosis and lumbar facet arthropathy. This patient has some increasing low back pain he did do very well with medial branch blocks with significant relief 80 to 90% better for 8 to 9 days. He has had a previous colectomy done by Dr. Brody in 2018. We will await his follow-up with Dr. Brody however we will proceed with radiofrequency ablation to the facet joints of L4-5 and L5-S1 today. We will do the right side today followed by the left side in 2 weeks. Procedure Details:: Lumbar RFA informed consent was obtained and the risk and benefits of the procedure was explained to the patient. Patient was placed prone on the procedure table. The patient was prepped and draped in sterile fashion. C-arm fluoroscopy was used to view the lumbar spine. The skin and subcutaneous tissues were anesthetized using lidocaine. I placed 20-gauge RF needles into the facet joints of L4-5 and L5-S1 levels on the right side. We underwent sensory stimulation. There is good sensory stimulation at 0.8 V. We underwent motor stimulation. There is no motor stimulation at 2 V. We then anesthetized these levels with lidocaine and Depo-Medrol. I used a total of 40 mg Depo-Medrol for both levels. I then burned both levels of L4-5 and L5-S1 facet joint/medial branches on the right side each one for 4 minutes at 80?C. Patient tolerated the procedure well with no complication. Plan and Disposition:: We will follow-up with him in 2 weeks. Will reevaluate his symptoms and plan on radiofrequency ablation to the facet joint/medial branches of L4-5 and L5-S1 on the left side. We will also await his follow-up appointment and recommendations from Dr. Brody.
[2019-09-29 09:32] VITALS: BP 129/75; PULSE 57; RESP 18; O2SAT 99
== END 2019-09-29 09:33 | disposition home or self-care (01) ==
PROVIDERS: PCP Internal Medicine Adolescent Medicine; Visit Provider Anesthesiology
DX: M54.16 Radiculopathy, lumbar region (principal); M12.88 Other specific arthropathies, not elsewhere classified, other specified site; M47.816 Spondylosis without myelopathy or radiculopathy, lumbar region; I25.10 Atherosclerotic heart disease of native coronary artery without angina pectoris; I10 Essential (primary) hypertension; F41.9 Anxiety disorder, unspecified; F32.9 Major depressive disorder, single episode, unspecified; Z87.39 Personal history of other diseases of the musculoskeletal system and connective tissue; M79.18 Myalgia, other site; M46.1 Sacroiliitis, not elsewhere classified; Z88.8 Allergy status to other drugs, medicaments and biological substances; Z79.899 Other long term (current) drug therapy
CPT/HCPCS: 64635; 64636; J1040

== ENCOUNTER 2019-10-13 09:02 | Day surgery (SDC) | payer MEDICARE, OTHER, SELFPAY ==
[2019-10-13 09:48] VITALS: BP 142/87; PULSE 64; RESP 18; TEMP 36.4; O2SAT 98; BMI 30.8
[2019-10-13 10:18] VITALS: BP 142/77; PULSE 78; RESP 18
[2019-10-13 10:19] VITALS: BP 144/77; PULSE 74; RESP 18; O2SAT 99
[2019-10-13 10:29] VITALS: BP 154/87; PULSE 66; RESP 18; O2SAT 98
--- NOTE | 2019-10-13 11:10 | P.PCN_ITS ---
- Procedure Date: 10/13/19 Time: 11:10 Anesthesiologist:: Alek Serrano MD Complications:: None Pre-procedure Diagnosis:: Degenerative disc disease of lumbar spine with lumbar facet arthropathy and lumbar spondylosis with right-sided hip pain and trochanteric bursitis of the right side Post-procedure Diagnosis:: Same Indications for Procedure:: Patient is a pleasant 69-year-old white male who we are treating for low back pain with lumbar spondylosis and lumbar facet arthropathy. He did not get any relief after RF ablation to the facet joint/medial branches of L4-5 and L5-S1 on the right side. Pain has changed some it is primarily over the right hip area and right trochanteric bursa. We will do a trigger point over the right lumbar paraspinous area and a right trochanteric bursa injection today to see if this helps with his pain symptoms. He is awaiting appoint with Dr. Brody over the next few weeks. Procedure Details:: Right trochanteric bursa injection under fluoroscopy Informed consent was obtained and the risk and benefits of the procedure was explained to the patient. The patient was taken to the procedure room. The right hip was prepped using ChloraPrep. The skin and subcutaneous tissues were anesthetized using lidocaine. I placed a 22-gauge spinal needle and advanced under fluoroscopic guidance until it contacted the right greater trochanter. Needle placement was confirmed with dye. After this I injected bupivacaine 0.25% 5 mL and Depo-Medrol 40 mg into the right trochanteric bursa. Patient tolerated the procedure well with no complications. Trigger point injections x2 over the right lumbar paraspinous Trigger points were palpated over the right hip and lumbar paraspinous area. We injected 5 mL bupivacaine 0.25% and Depo-Medrol 20 mg in each of 2 trigger points over the lumbar paraspinous area and right hip area. A total of 40 mg Depo-Medrol was injected into both of these trigger points. Patient tolerated t he procedure well with no complications. Plan and Disposition:: We will follow-up with him in 2 weeks. Will reevaluate symptoms at that time.
== END 2019-10-13 10:30 | disposition home or self-care (01) ==
LOC: SC.PAINP 09:03
PROVIDERS: PCP Internal Medicine Adolescent Medicine; Visit Provider Anesthesiology
DX: M51.36 Other intervertebral disc degeneration, lumbar region (principal); M47.816 Spondylosis without myelopathy or radiculopathy, lumbar region; M12.88 Other specific arthropathies, not elsewhere classified, other specified site; M70.61 Trochanteric bursitis, right hip; E78.5 Hyperlipidemia, unspecified; I10 Essential (primary) hypertension; Z88.8 Allergy status to other drugs, medicaments and biological substances; Z79.899 Other long term (current) drug therapy
CPT/HCPCS: 20552; 20610; 77002; J1040; Q9966

== ENCOUNTER → 2019-11-02 09:30 | Outpatient (POV) | payer MEDICARE, OTHER, SELFPAY ==
[2019-11-02 09:33] VITALS: BP 142/74; PULSE 74; RESP 18; O2SAT 98; BMI 30.8
--- NOTE | 2019-11-02 10:28 | HMH.PAINSOAP ---
[facility] Pain Management SOAP Note Subjective:: Patient is a 69-year-old white male who presents today for follow-up. Patient is being treated for chronic low back pain with lumbar radiculopathy symptoms, as well as facet arthropathy and lumbar spondylosis with right-sided hip pain. Patient says he is having primarily right low back pain. He rates his pain a 4 out of 10 today. Patient says he is continued to have pain on the right side only. He says it is worse with sitting. Patient says pain improves with standing. He is scheduled to see Dr. Brody and undergo imaging. 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 He says that he had SI injections in the past and did well with the injections until 2016, for which at that time Dr. Brody did a surgica procedure to remove a fragment of bone. Patient says following that surgical procedure, he did well until December 2018 when he developed severe low back pain again. Patient did undergo SI injections again at that time which did help him for approximately 1 month. Patient says he is unsure if his pain is related to his right SI, however, he has been encouraged to undergo possible surgical intervention with Dr. Brody. Would like to postpone any injections or other procedures in our clinic until he discusses a further plan of care with Dr. Brody. Review of Systems General: No recent weight changes, no fever, no sleep disturbances Respiratory: No cough, no shortness of air, no recurring pulmonary infections Cardiovascular/peripheral vascular: No chest pain, no palpitations, no edema, no shortness of breath Gastrointestinal: No new onset incontinence, normal bowel movements reported Genitourinary: No new onset incontinence Musculoskeletal: Low back pain Psychiatric: Normal mood/affect Neurological: [Denies weakness in extremities], [denies balance issues] Objective:: Physical exam General: Alert and oriented x3, no acute distress, pleasant and cooperative, [on room air] Lungs: Respirations even and unlabored, symmetrical chest expansion Eyes: PERRL Musculoskeletal: Flexion and extension of lumbar spine somewhat guarded secondary to pain, deep tendon reflexes normal, strength in upper and lower extremities [5/5], [abnormal gait noted] positive Wade's test, positive Amol's test, positive distraction test Neurological: Speech clear, reliability technologist equal, no gross sensory deficit Assessment:: Degenerative disc disease lumbar spine with lumbar facet arthropathy, lumbar spondylosis, right trochanteric bursitis, right sacroiliitis Plan:: Patient and I did discuss undergoing a repeat right SI joint injection to see if this relieves his pain. I do think the patient would be a great candidate for SI stabilization to the right side, however, he would like to postpone any type of intervention until he speaks with Dr. Brody. We will schedule the patient to follow-up with us in 2 weeks after he has seen Dr. Brody. Patient has been instructed to contact the clinic if he has any concerns before his next appointment. The patient and I specifically discussed risk factors for COVID19. These risks include, but are not limited to age greater than 60, heart or lung disease, diabetes, immunosuppression, and travel. We also discussed NSAIDs may worsen COVID19 infection or symptoms. Patient should not use NSAIDs to treat COVID19 signs or symptoms. Patient was also informed that any type of corticosteroid of any form (oral or injection) will decrease the patient's immune system response and may increase the likelihood of COVID19 [address] Serrano has reviewed this note and agrees with this plan of care. This note was dictated using voice recognition software and make contain errors or omissions. [facility] History I have reviewed the patient's past medical history: Yes Medical History: Reports:: Hyperlipidemia, Hypertension Denies:: Cancer, Diabetes Mellitus Type 1, Diabetes Mellitus Ty
== END ==
PROVIDERS: PCP Internal Medicine Adolescent Medicine; Visit Provider Clinical Nurse Specialist Family Health
DX: M51.36 Other intervertebral disc degeneration, lumbar region (principal); M47.816 Spondylosis without myelopathy or radiculopathy, lumbar region; M12.88 Other specific arthropathies, not elsewhere classified, other specified site; M46.1 Sacroiliitis, not elsewhere classified; M70.61 Trochanteric bursitis, right hip
CPT/HCPCS: 99212

== ENCOUNTER → 2019-12-07 09:34 | Outpatient (POV) | payer MEDICARE, OTHER, SELFPAY ==
[2019-12-07 09:45] VITALS: BP 138/88; PULSE 84; RESP 18; O2SAT 98; BMI 30.8
--- NOTE | 2019-12-07 10:09 | HMH.PAINSOAP ---
[facility] Pain Management SOAP Note Subjective:: Patient is a 69-year-old white male who presents today for follow-up. He has been treated for chronic low back pain primarily to the right side with radiation into his right leg. Patient has undergone both medial branch blocks as well as an RFA. He also underwent a right SI joint injection as well as a right trochanteric bursa injection. Patient does have right hip pain as well. He says that his pain is a 4 out of 10 today. Patient says that his pain is worse with sitting at this time. He says standing and walking improves his pain. He does report that he got approximately 70 to 80% relief with his medial branch blocks, however, his pain was worse following the RFA's. Patient did undergo a right SI joint injection as well as right trochanteric bursa injection for which he says he got about 60 to 70% relief for a week. His pain has returned. He says his pain is not as significant as it was prior to the injections, however, he does continue to have pain. Patient is scheduled to see Dr. Hendrix on December 11. He did undergo a myelogram. Patient is able to have an MRI. Patient has tried oral medications as well as physical therapy for greater than 6 weeks and a continued home stretching program. He is also use ice and heat therapies with no relief. Patient and I did discuss at his last visit a possible SI stabilization. He is here today to discuss his options. Review of Systems General: No recent weight changes, no fever, no sleep disturbances Respiratory: No cough, no shortness of air, no recurring pulmonary infections Cardiovascular/peripheral vascular: No chest pain, no palpitations, no edema, no shortness of breath Gastrointestinal: No new onset incontinence, normal bowel movements reported Genitourinary: No new onset incontinence Musculoskeletal: Right low back pain, right hip pain Psychiatric: Normal mood/affect Neurological: [Denies weakness in extremities], [denies balance issues] Objective:: Physical exam General: Alert and oriented x3, no acute distress, pleasant and cooperative, [on room air] Lungs: Respirations even and unlabored, symmetrical chest expansion Eyes: PERRL Musculoskeletal: Flexion and extension of bar spine somewhat guarded secondary to pain, deep tendon reflexes normal, strength in upper and lower extremities [5/5], [abnormal gait noted] positive Amol's test, positive SI compression test Neurological: Speech clear, healthcare receptionist equal, no gross sensory deficit Assessment:: Degenerative disc disease lumbar spine with lumbar radiculopathy symptoms, right sacroiliitis, right trochanteric bursitis Plan:: The patient continues to have tenderness over his right SI joint and right hip. He does have a positive Amol's and compression test. Pain I did have a long discussion concerning the corner lock procedure. He was given educational information at his last visit. 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 I did discuss with the patient the risks and benefits and the downtime of the procedure. Patient would like to proceed with a repeat right SI joint injection diagnostically to see how much relief he gets with the injection. The patient says if he does get adequate relief, up to 70% or more from the injection, he would like to proceed with corner lock procedure. We will also plan to follow-up with Dr. Brody of surgery, for discussion of his myelogram. Per his report, he does have a mild to moderate disc bulge at L2-L3 with effacement. He will continue with a home stretching program. He will continue to use ice and heat therapies as well. We will plan to see him back in the clinic after his appointment with Dr. Brody and his right SI joint injection to see how much relief he gets with the injection. the patient and I specifically discussed risk factors for COVID19. These risks include, but are not li
== END ==
PROVIDERS: PCP Internal Medicine Adolescent Medicine; Visit Provider Clinical Nurse Specialist Family Health
DX: M51.16 Intervertebral disc disorders with radiculopathy, lumbar region (principal); M46.1 Sacroiliitis, not elsewhere classified; M70.61 Trochanteric bursitis, right hip
CPT/HCPCS: 99212

== ENCOUNTER 2019-12-15 12:00 | Day surgery (SDC) | payer MEDICARE, OTHER, SELFPAY ==
[2019-12-15 12:26] VITALS: BP 120/64; PULSE 56; RESP 18; TEMP 36.4; O2SAT 96; BMI 30.8
[2019-12-15 12:37] VITALS: BP 133/74; PULSE 88; RESP 18; O2SAT 98
[2019-12-15 12:43] VITALS: BP 139/85; PULSE 85; RESP 18
--- NOTE | 2019-12-15 12:45 | P.PCN_ITS ---
- Procedure Date: 12/15/19 Time: 12:45 Anesthesiologist:: Alek Serrano MD Complications:: None Pre-procedure Diagnosis:: Right-sided sacroiliitis Post-procedure Diagnosis:: Same Indications for Procedure:: This patient is a pleasant 69-year-old white male who we are treating for right- sided hip pain. He is also previously had medial branch blocks and RFA. He did not get any better after this. He has seen Dr. Brody and undergone a myelogram. He has had previous back surgery. Dr. Brody said that he is a candidate for further surgery and he is planning on having further surgery to his lumbar spine. In the meantime we will help take care of his right hip pain with a right SI joint injection under fluoroscopy. Procedure Details:: Right SI joint injection under fluoroscopy Informed consent was obtained and the risks and benefits of the procedure was going to the patient. Patient was taken to the procedure room. Patient was placed prone on the procedure table. The right hip was prepped using ChloraPrep. The skin and subcutaneous tissues were anesthetized using lidocaine. I placed a 22-gauge spinal needle into the inferior aspect of the right SI joint. Needle placement was confirmed with dye. After this we injected 5 mL bupivacaine 0.25% and Depo-Medrol 40 mg into the right SI joint. The patient tolerated the procedure well with no complication. Plan and Disposition:: We will follow-up with him in 2 weeks. Will reevaluate his symptoms at that time.
[2019-12-15 12:54] VITALS: BP 125/77; PULSE 58; RESP 18; O2SAT 96
== END 2019-12-15 12:55 | disposition home or self-care (01) ==
LOC: SC.PAINP 12:02
PROVIDERS: PCP Internal Medicine Adolescent Medicine; Visit Provider Anesthesiology
DX: M46.1 Sacroiliitis, not elsewhere classified (principal); I10 Essential (primary) hypertension; E78.5 Hyperlipidemia, unspecified; K21.9 Gastro-esophageal reflux disease without esophagitis; Z98.84 Bariatric surgery status; Z88.8 Allergy status to other drugs, medicaments and biological substances; Z79.899 Other long term (current) drug therapy
CPT/HCPCS: 27096; G0260; J1040; Q9966

== ENCOUNTER → 2020-01-08 11:32 | Outpatient (POV) | payer MEDICARE, OTHER, SELFPAY ==
--- NOTE | 2020-01-08 12:27 | HMH.PAINSOAP ---
[facility] Pain Management SOAP Note Subjective:: patient is a pleasant 69-year-old white male who presents today for follow-up. Patient had a right SI joint injection. Patient got no relief from this. Patient rates his pain today an 8 out 10. Patient was seen by Dr. Brody and told that he was a candidate for surgery. He is going to move forward with this. I do believe that this would be best. He has failed conservative options including medication, injection therapy, heat and ice. ROS General: no recent weight change, no fever, no sleep disturbances Respiratory: no cough, no shortness of air, no recurring pulmonary infections Cardiovascular/Peripheral Vascular: No chest pain, No palpitations, no edema, no shortness of breath. Gastrointestinal: no new onset incontinence, normal bowel movements reported Genitourinary: no new onset incontinence Musculoskeletal: Back pain, leg pain Psychiatric: normal mood/ affect Neurological: [denies new onset weakness in extremities], [denies new onset balance issues] Objective:: Physical Exam General: Alert and oriented x3, no acute distress, pleasant and cooperative, [on room air] Lungs: Resps E/U, Symmetrical chest expansion, Eyes: PERRL Musculoskeletal: Flexion and extension of lumbar spine somewhat guarded secondary to pain, deep tendon reflexes normal, strength in upper and lower extremities [5/5], [abnormal gait noted] Neurological: speech clear, quality assurance monitor final equal, no gross sensory deficits Assessment:: Back pain degenerative disc disease lumbar spine lumbar radiculopathy Plan:: We will see the patient back after his surgical intervention with Dr. Brody. He has been instructed to call the office if he has any issues prior to his next appointment. Dr. Serrano has reviewed this note and agrees with this plan of care. This note was dictated using voice recognition software and may contain errors or omissions [facility] History I have reviewed the patient's past medical history: Yes Medical History: Reports:: Hyperlipidemia, Hypertension Denies:: Cancer, Diabetes Mellitus Type 1, Diabetes Mellitus Type 2, Internal Pacemaker, MRSA, Seizures *Have you ever received a pneumonia vaccine?: No *Have you received a flu vaccine this season?: No Other Medical History: Reports: Arthritis. Denies: Blood Transfusion Reaction Laterality Cases: Right: Arthroscopy Shoulder, Bilateral: Arthroscopy Knee Other Surgeries: Yes: Cardiac Catheterization, Cholecystectomy, Other (lap band, cochlear implant). No: Pacemaker Amputation: No Fractures: No - *Social History Smoking Status: Never smoker Alcohol Intake: never *Occupational Status:: retired Housing: house Household Members: spouse *Travel in the last 8 weeks: None Family Hx:: Cancer, Heart Attack, Stroke
[2020-01-08 14:16] VITALS: BP 133/78; PULSE 72; RESP 18; TEMP 36.8; O2SAT 98; BMI 34.9
== END ==
PROVIDERS: PCP Internal Medicine Adolescent Medicine; Visit Provider Clinical Nurse Specialist Family Health
DX: M51.16 Intervertebral disc disorders with radiculopathy, lumbar region (principal)
CPT/HCPCS: 99212

== ENCOUNTER 2020-05-24 13:00 | Outpatient (RCR) | payer MEDICARE, OTHER, SELFPAY | END 2020-05-24 13:05 | disposition home or self-care (01) | LOC: PT 13:00 | PROVIDERS: PCP Internal Medicine Adolescent Medicine; Visit Provider Neurological Surgery | DX: M46.1 Sacroiliitis, not elsewhere classified (principal); M51.16 Intervertebral disc disorders with radiculopathy, lumbar region; Z98.890 Other specified postprocedural states | CPT/HCPCS: 97010; 97014; 97110; 97163; G0283 ==

== ENCOUNTER → 2020-08-14 10:10 | Outpatient (CLI) | payer MEDICARE, OTHER, SELFPAY ==
[2020-08-14 10:48] LABS: Basophils % 0.5 % (0.1-2.0); Eosinophils # 0.1 K/mm3 (0.0-0.4); Eosinophils % 2.1 % (0.1-12.0); Hematocrit 43.1 % (42.0-52.0); Hemoglobin 14.5 g/dL (14.1-18.0); Lymphocytes # 1.6 K/mm3 (0.7-4.5); Lymphocytes % 23.1 % (10-50); Mean Corpuscular HGB Conc 33.7 g/dL (31.8-35.4); Mean Corpuscular Hemoglobin 30.9 pg (27.0-31.2); Mean Corpuscular Volume 91.7 fl (80-94); Mean Platelet Volume 8.1 fl (7.4-10.4); Monocytes # 0.4 K/mm3 (0.1-1.0); Monocytes % 6.5 % (1.7-9.3); Neutrophils # 4.6 K/mm3 (1.8-7.8); Neutrophils % 67.8 % (37.0-80.0); Platelet Count 186 K/mm3 (142-424); Red Cell Distribution Width 14.2 % (11.5-17.5); White Blood Count 6.8 K/mm3 (4.8-10.8)
[2020-08-14 11:03] LABS: Chloride 104 mmol/L (98-107); Potassium 4.7 mmoL/L (3.5-5.1); Sodium 143 mmol/L (136-145)
[2020-08-14 11:05] LABS: Alanine Aminotransferase 22 U/L (12-78); Alkaline Phosphatase 84 U/L (38-126); Aspartate Amino Transferase 27 U/L (17-59); Bilirubin,Total 1.4 mg/dl (0.2-1.3); Blood Urea Nitrogen 17 mg/dl (9-20); Estimated Glomerular Filt Rate 96 ml/min (>60); GFR (African American) 116 ML/MIN (>60)
[2020-08-14 11:06] LABS: Albumin Level 4.5 g/dl (3.5-5.0); Albumin/Globulin Ratio 1.7 (1.1-1.8); Anion Gap 13.7 mEq/L (5-15); Calcium 9.6 mg/dl (8.4-10.2); Carbon Dioxide 30 mmol/L (22.0-30.0); Chol/HDL Ratio 5.8 (1-3.5); Cholesterol 161 mg/dl (140-200); Globulin 2.7 g/dL (1.3-3.2); Glucose 111 mg/dl (74-100); HDL Cholesterol 28 mg/dl (40-60); Total Protein,Serum 7.2 g/dl (6.3-8.2); Triglycerides 132 mg/dl (30-150); VLDL Cholesterol 26 mg/dL (0-40)
[2020-08-14 11:08] LABS: Hemoglobin A1C 5.5 % (4.0-6.0)
[2020-08-14 11:18] LABS: Direct LDL Cholesterol 117.48 mg/dL (100-129)
== END ==
PROVIDERS: Visit Provider Internal Medicine Adolescent Medicine
DX: E78.5 Hyperlipidemia, unspecified (principal); R73.9 Hyperglycemia, unspecified; R76.8 Other specified abnormal immunological findings in serum
CPT/HCPCS: 36415; 80053; 80061; 83036; 85025

== ENCOUNTER → 2020-09-09 16:44 | Outpatient (CLI) | payer MEDICARE, OTHER, SELFPAY ==
[2020-09-09 17:36] LABS: Basophils % 0.4 % (0.1-2.0); Eosinophils # 0.1 K/mm3 (0.0-0.4); Eosinophils % 1.5 % (0.1-12.0); Hematocrit 42.5 % (42.0-52.0); Hemoglobin 14.2 g/dL (14.1-18.0); Lymphocytes # 1.5 K/mm3 (0.7-4.5); Lymphocytes % 19.4 % (10-50); Mean Corpuscular HGB Conc 33.4 g/dL (31.8-35.4); Mean Corpuscular Hemoglobin 30.2 pg (27.0-31.2); Mean Corpuscular Volume 90.6 fl (80-94); Mean Platelet Volume 8.4 fl (7.4-10.4); Monocytes # 0.5 K/mm3 (0.1-1.0); Monocytes % 5.7 % (1.7-9.3); Neutrophils # 5.8 K/mm3 (1.8-7.8); Neutrophils % 72.9 % (37.0-80.0); Platelet Count 208 K/mm3 (142-424); Red Blood Count 4.69 M/mm3 (4.60-6.20); Red Cell Distribution Width 14.1 % (11.5-17.5); White Blood Count 7.9 K/mm3 (4.8-10.8)
[2020-09-09 18:02] LABS: Chloride 106 mmol/L (98-107); Potassium 4.6 mmoL/L (3.5-5.1); Sodium 144 mmol/L (136-145)
[2020-09-09 18:04] LABS: Alanine Aminotransferase 20 U/L (12-78); Aspartate Amino Transferase 31 U/L (17-59); Bilirubin,Total 1.1 mg/dl (0.2-1.3); Blood Urea Nitrogen 15 mg/dl (9-20); Estimated Glomerular Filt Rate 96 ml/min (>60); GFR (African American) 116 ML/MIN (>60)
[2020-09-09 18:05] LABS: Albumin Level 4.7 g/dl (3.5-5.0); Albumin/Globulin Ratio 1.7 (1.1-1.8); Alkaline Phosphatase 66 U/L (38-126); Anion Gap 14.6 mEq/L (5-15); Calcium 9.7 mg/dl (8.4-10.2); Carbon Dioxide 28 mmol/L (22.0-30.0); Chol/HDL Ratio 5.6 (1-3.5); Cholesterol 145 mg/dl (140-200); Globulin 2.7 g/dL (1.3-3.2); Glucose 85 mg/dl (74-100); HDL Cholesterol 26 mg/dl (40-60); Total Protein,Serum 7.4 g/dl (6.3-8.2); Triglycerides 235 mg/dl (30-150); VLDL Cholesterol 47 mg/dL (0-40)
[2020-09-09 18:16] LABS: Direct LDL Cholesterol 88.15 mg/dL (100-129)
== END ==
PROVIDERS: Visit Provider Internal Medicine Adolescent Medicine
DX: E78.5 Hyperlipidemia, unspecified (principal); D69.9 Hemorrhagic condition, unspecified
CPT/HCPCS: 80053; 80061; 85025

== ENCOUNTER 2021-02-17 01:21 | Emergency (ER) | payer MEDICARE, OTHER, SELFPAY ==
[2021-02-17] VITALS (7 sets, daily range): BP systolic 90–120; BP diastolic 61–77; PULSE 82–106; RESP 18–24; TEMP 36.5–36.7; O2SAT 97–100; BMI 29.2; BMI 29.4
--- NOTE | 2021-02-17 01:27 | CT_ITS ---
PROCEDURE INFORMATION: Exam: CT Head Without Contrast Exam date and time: 02/17/2021 1:27 AM Age: 70 years old Clinical indication: Dizziness and syncope and collapse; Prior surgery; Surgery type: Cochlear implant; Patient HX: Sergio TECHNIQUE: Imaging protocol: Computed tomography of the head without contrast. Radiation optimization: All CT scans at this facility use at least one of these dose optimization techniques: automated exposure control; mA and/or kV adjustment per patient size (includes targeted exams where dose is matched to clinical indication); or iterative reconstruction. COMPARISON: No relevant prior studies available. FINDINGS: Limitations: Evaluation is limited by streak artifact. Tubes, catheters and devices: Left-sided cochlear implant. Brain: There is mild diffuse enlargement CSF containing spaces consistent global parenchymal volume loss. No acute intracranial hemorrhage. No evidence of acute large territorial infarct or significant cerebral edema. No midline shift or significant mass effect. Cerebral ventricles: No hydrocephalus. Paranasal sinuses: The paranasal sinuses are clear. Mastoid air cells: The mastoid air cells are clear. Orbital cavity: The orbits are unremarkable. Bones/joints: No acute fracture. Postsurgical changes consistent with left cochlear implant. Soft tissues: The superficial soft tissues are normal. IMPRESSION: 1. No acute intracranial hemorrhage, large territorial infarct, or significant mass affect given limitations as above. Recommend correlation with physical exam. 2. Chronic findings as above.
--- NOTE | 2021-02-17 01:27 | XR_ITS ---
PROCEDURE INFORMATION: Exam: XR Chest Exam date and time: 02/17/2021 1:27 AM Age: 70 years old Clinical indication: Other: Syncope, diziness TECHNIQUE: Imaging protocol: XR of the chest. Views: 2 views. COMPARISON: UEAJW/ORT MRI-UP EXT ANY JNT W/O-RT 06/29/2016 2:17 PM FINDINGS: Lungs: The lungs are adequately inflated without focal consolidation. Pleural spaces: No pneumothorax or pleural effusion. Heart/Mediastinum: The cardiomediastinal silhouette has normal size and contour. Bones/joints: No displaced fracture. Intraperitoneal space: The visualized abdomen is unremarkable. Gastrointestinal tract: Gastric band with phi angle of 56 degrees. IMPRESSION: 1. No acute cardiopulmonary disease. 2. No displaced fracture.
--- NOTE | 2021-02-17 01:27 | ECG_ITS ---
APPROVED REPORT Exam: Resting ECG HR:90 bpm ECG Measurements Heart Rate 90 AXES FL 176 P 69 QRSd 86 QRS -19 QT 346 T 39 QTc 423 Conclusion Sinus rhythm with premature atrial complexes Otherwise normal ECG Electronically signed by : Jonathan Craft MD 02/20/2021 13:51:12
[2021-02-17 01:35] LABS: Basophils # 0.1 K/mm3 (0-0.2); Basophils % 0.4 % (0.1-2.0); Eosinophils # 0.1 K/mm3 (0.0-0.4); Eosinophils % 0.8 % (0.1-12.0); Hemoglobin 8.9 g/dL (14.1-18.0); Lymphocytes # 3.5 K/mm3 (0.7-4.5); Lymphocytes % 29.4 % (10-50); Mean Corpuscular HGB Conc 30.7 g/dL (31.8-35.4); Mean Corpuscular Hemoglobin 29.4 pg (27.0-31.2); Mean Corpuscular Volume 95.9 fl (80-94); Mean Platelet Volume 9.5 fl (7.4-10.4); Monocytes # 0.7 K/mm3 (0.1-1.0); Monocytes % 5.5 % (1.7-9.3); Neutrophils # 7.7 K/mm3 (1.8-7.8); Platelet Count 282 K/mm3 (142-424); Red Blood Count 3.01 M/mm3 (4.60-6.20); Red Cell Distribution Width 14.3 % (11.5-17.5)
[2021-02-17 01:39] LABS: Hematocrit 28.9 % (42.0-52.0)
[2021-02-17 01:44] LABS: Alanine Aminotransferase 21 U/L (12-78); Albumin Level 4.1 g/dl (3.5-5.0); Albumin/Globulin Ratio 1.7 (1.1-1.8); Alkaline Phosphatase 55 U/L (38-126); Anion Gap 14.7 mEq/L (5-15); Aspartate Amino Transferase 25 U/L (17-59); Bilirubin,Total 0.7 mg/dl (0.2-1.3); Blood Urea Nitrogen 43 mg/dl (9-20); Calcium 8.5 mg/dl (8.4-10.2); Carbon Dioxide 22 mmol/L (22.0-30.0); Chloride 103 mmol/L (98-107); Creatinine Clearance Estimated 93 mL/min (50-200); Estimated Glomerular Filt Rate 84 ml/min (>60); GFR (African American) 102 ML/MIN (>60); Globulin 2.4 g/dL (1.3-3.2); Glucose 152 mg/dl (74-100); Potassium 3.7 mmoL/L (3.5-5.1); Sodium 136 mmol/L (136-145); Total Protein,Serum 6.5 g/dl (6.3-8.2)
[2021-02-17 01:51] LABS: C-Reactive Protein 1.6 mg/L (0-4)
--- NOTE | 2021-02-17 01:56 | HMH.EDSYNC ---
ED Disposition Clinical Impression: Syncope due to orthostatic hypotension Anemia Qualifiers: Anemia type: unspecified type Qualified Code(s): D64.9 - Anemia, unspecified Disposition: Home, Self-Care Condition on Discharge: Good Instructions: DI for Syncope in Adults (Fainting) Additional Instructions: call pcp this am Referrals: Jonathan Craft MD [Primary Care Provider] - - Critical Care Critical Care Time: No Attestation: On 02/17/21, the high probability of a clinically significant, sudden or life threatening deterioration of the following system(s) required my full and direct attention, intervention and personal management. The time I documented below is in addition to time spent performing reported procedures but includes the following listed in this critical care notation. Medical Decision Making - Medical Records Medical records reviewed: Yes: I reviewed the patient's medical records. - Riky Inquiry Pt receiving controlled substance: No Vital Signs: 02/17/21 01:19 02/17/21 01:30 02/17/21 02:05 Temperature 97.7 F Temperature Source Oral Pulse Rate 92 H 95 H Pulse Rate [Orthostatic Lying Apical] Pulse Rate [Orthostatic Sitting Apical] Pulse Rate [Orthostatic Standing Apical] Pulse Rate [Right] 93 H Respiratory Rate 19 24 Blood Pressure 120/75 116/66 Blood Pressure [Orthostatic Lying Right Arm] Blood Pressure [Orthostatic Sitting Right Arm] Blood Pressure [Orthostatic Standing Right Arm] Blood Pressure [Right Arm] 120/75 Blood Pressure Mean [Right Arm] 90 02 Sat by Pulse Oximetry 100 100 98 Oxygen Delivery Method Room Air Room Air Room Air 02/17/21 02:08 02/17/21 02:31 Temperature Temperature Source Pulse Rate Pulse Rate [Orthostatic Lying Apical] 86 Pulse Rate [Orthostatic Sitting Apical] 87 Pulse Rate [Orthostatic Standing Apical] 106 H Pulse Rate [Right] Respiratory Rate 22 Blood Pressure 109/66 L Blood Pressure [Orthostatic Lying Right Arm] 116/66 Blood Pressure [Orthostatic Sitting Right Arm] 110/69 Blood Pressure [Orthostatic Standing Right Arm] 90/61 L Blood Pressure [Right Arm] Blood Pressure Mean [Right Arm] 02 Sat by Pulse Oximetry 98 Oxygen Delivery Method Room Air - Lab Data Lab results reviewed: Yes: I reviewed the patient's lab results. Lab Results 02/17/21 01:21: WBC 12.0 H, RBC 3.01 L, Hgb 8.9 L, Hct 28.9 L, MCV 95.9 H, MCH 29.4, MCHC 30.7 L, RDW 14.3, Plt Count 282, MPV 9.5, Neut % (Auto) 64.0, Lymph % (Auto) 29.4, [place] % (Auto) 5.5, Eos % (Auto) 0.8, Baso % (Auto) 0.4, Neut # (Auto) 7.7, Lymph # (Auto) 3.5, [place] # (Auto) 0.7, Eos # (Auto) 0.1, Baso # (Auto) 0.1, ESR 55 H 02/17/21 01:21: Sodium 136, Potassium 3.7, Chloride 103, Carbon Dioxide 22, Anion Gap 14.7, BUN 43 H, Creatinine 0.90, Estimated Creat Clear 93, Estimated GFR 84, Est GFR ( Amer) 102, Glucose 152 H, Calcium 8.5, Total Bilirubin 0.7, AST 25, ALT 21, Alkaline Phosphatase 55, Troponin I < 0.01, C-Reactive Protein 1.6, Total Protein 6.5, Albumin 4.1, Globulin 2.4, Albumin/Globulin Ratio 1.7, Procalcitonin 0.096 02/17/21 01:21: Hemoglobin A1c 4.9 02/17/21 02:09: SARS-CoV-2 (PCR) Not detected, Influenza A Untype (PCR) Not detected, Influenza Type B (PCR) Not detected 02/17/21 03:03: Urine Color Yellow, Urine Appearance Clear, Urine pH 5.5, Ur Specific [place] 1.020, Urine Protein Negative, Urine Glucose (UA) Negative, Urine Ketones 1+, Urine Blood Negative, Urine Nitrate Negative, Urine Bilirubin Negative, Urine Urobilinogen 0.2, Ur Leukocyte Esterase Negative, Urine RBC Occasional, Urine WBC 10-20, Amorphous Sediment Trace, Urine Mucus 4+ Result diagrams: 02/17/21 01:21 02/17/21 01:21 Orders (Tests/Meds): ED MEDICATIONS Generic Name Dose Route Start Last Admin Trade Name Freq PRN Reason Stop Dose Admin Sodium Chloride 1,000 mls @ 999 mls/hr 02/17/21 01:30 02/17/21 02:10 Sod Chlor 0.9% 1000ml Bag IV 02/17/21 02:30 999 mls/hr .
[2021-02-17 02:00] LABS: Troponin I < 0.01 ng/ml (0.00-0.034)
[2021-02-17 02:02] LABS: Erythrocyte Sedimentation Rate 55 mm/hr (0-20)
[2021-02-17 02:04] LABS: Procalcitonin 0.096 ng/mL (0.0-2.0)
[2021-02-17 02:16] LABS: Coronavirus 19, PCR Not Detected (NotDetected); Influenza A, PCR Not Detected (NotDetected); Influenza B, PCR Not Detected (NotDetected)
[2021-02-17 02:57] LABS: Hemoglobin A1C 4.9 % (4.0-6.0)
[2021-02-17 03:07] LABS: Microscopic, Urine URINE MICROSCOPIC (MICROSCOPIC)
[2021-02-17 03:13] LABS: Appearance,Urine CLEAR (Clear); Bilirubin,Urine Negative (Negative); Blood, Urine Negative (Negative); Color,Urine YELLOW (Yellow); Glucose,Urine (UA) Negative (Negative); Ketones,Urine 1+ (Negative); Leukocyte Esterase,Urine Negative (Negative); Nitrate,Urine Negative (Negative); PH,Urine 5.5 (5.0-8.5); Protein,Urine Negative (Negative); Urobilinogen,Urine 0.2 EU/dl (0.2)
[2021-02-17 03:16] LABS: Amorphous Sediment,Urine Trace /lpf; Mucus,Urine 4+ /lpf; RBC,Urine Occasional #/hpf (0-3)
[2021-02-17 03:41] LABS: Occult Blood,Stool Negative (Negative)
== END 2021-02-17 04:07 | disposition home or self-care (01) ==
PROVIDERS: Emergency Provider Emergency Medicine; PCP Internal Medicine Adolescent Medicine
DX: R55 Syncope and collapse (principal); I95.1 Orthostatic hypotension; D64.9 Anemia, unspecified; I10 Essential (primary) hypertension; E78.5 Hyperlipidemia, unspecified; Z79.899 Other long term (current) drug therapy
CPT/HCPCS: 70450; 71046; 80053; 81001; 82272; 83036; 84145; 84484; 85025; 85651; 86140; 87086; 93005; 96365; 99284; C9803; G0328; U0003; U0005

== ENCOUNTER 2021-02-18 14:36 | Observation (INO) | payer MEDICARE, OTHER, SELFPAY ==
[2021-02-18] VITALS (14 sets, daily range): BP systolic 110–157; BP diastolic 51–83; PULSE 74–115; RESP 14–18; TEMP 36.9–37.3; O2SAT 97–100; BMI 29.5
[2021-02-18 11:32] LABS: Basophils % 0.4 % (0.1-2.0); Eosinophils % 0.3 % (0.1-12.0); Hematocrit 22.5 % (42.0-52.0); Hemoglobin 7.1 g/dL (14.1-18.0); Lymphocytes # 1.5 K/mm3 (0.7-4.5); Mean Corpuscular HGB Conc 31.5 g/dL (31.8-35.4); Mean Corpuscular Hemoglobin 29.1 pg (27.0-31.2); Mean Corpuscular Volume 92.4 fl (80-94); Mean Platelet Volume 9.2 fl (7.4-10.4); Monocytes # 0.5 K/mm3 (0.1-1.0); Neutrophils # 8.5 K/mm3 (1.8-7.8); Neutrophils % 80.3 % (37.0-80.0); Platelet Count 255 K/mm3 (142-424); Red Blood Count 2.43 M/mm3 (4.60-6.20); Red Cell Distribution Width 15.3 % (11.5-17.5); White Blood Count 10.6 K/mm3 (4.8-10.8)
[2021-02-18 12:12] LABS: Iron 19 ug/dL (49-181)
[2021-02-18 12:23] LABS: Total Iron Binding Capacity 388 ug/dL (261-462)
[2021-02-18 15:03] LABS: Coronavirus 19, PCR Not Detected (NotDetected); Influenza A, PCR Not Detected (NotDetected); Influenza B, PCR Not Detected (NotDetected)
--- NOTE | 2021-02-18 15:27 | HMH.GSCON ---
*Admission Date: 02/18/21 *Reason for consult:: GI bleed *History of present illness: Patient is a 70-year-old male from [facility] who had undergone previous laparoscopic band by Dr. Bob Norton at [facility] in [place] in 2010 for morbid obesity. Patient does state that he has lost about 100 pounds. He is on Celebrex and Plavix. He had presented to the emergency department with in the very early hours yesterday on 02/18/2020 with symptoms of dizziness and apparent syncope with some exertional shortness of breath and nausea. Evaluation in the emergency department revealed hemoglobin of 8.9 with hematocrit of 28.9%. Baseline hemoglobin 14. He was also noted to have a BUN of 43 with a creatinine of 0.9. He was found to be Hemoccult negative. Patient was managed as an outpatient. Follow-up today revealed hemoglobin of 7.1. Arrangements were made for inpatient admission. Patient has noted some melena. Denies any known prior history of ulcer disease. He did undergo previous EGD when he had evaluation for lap band. Review of Systems - Review of Systems Review of systems:: pertinent systems reviewed and negative unless documented below [facility] History I have reviewed the patient's past medical history: Yes Medical History: Reports:: Hyperlipidemia, Hypertension Denies:: Cancer, Diabetes Mellitus Type 1, Diabetes Mellitus Type 2, Internal Pacemaker, MRSA, Seizures *Have you ever received a pneumonia vaccine?: Yes *Have you received a flu vaccine this season?: No Other Medical History: Reports: Arthritis. Denies: Blood Transfusion Reaction Laterality Cases: Right: Arthroscopy Shoulder, Bilateral: Arthroscopy Knee Other Surgeries: Yes: Cardiac Catheterization, Cholecystectomy, Other (lap band, cochlear implant). No: Pacemaker Amputation: No Fractures: No - *Social History Smoking Status: Never smoker Alcohol Intake: never *Occupational Status:: other Housing: house Household Members: spouse *Travel in the last 8 weeks: None Family Hx:: Cancer, Heart Attack, Stroke Meds Home Medications Medication Instructions Recorded Confirmed Type Celecoxib 400 mg PO BID 06/05/19 02/17/21 History Clopidogrel Bisulfate [Clopidogrel 75 mg PO DAILY 06/05/19 02/17/21 History 75mg Tab] Losartan Potassium 25 mg PO DAILY 06/05/19 02/17/21 History Ascorbic Acid [Vitamin C 500mg 500 mg PO DAILY 02/17/21 02/17/21 History tablet] Multivitamin [Multi-Vitamin Plain] 1 tab PO DAILY 02/17/21 02/17/21 History Ubidecarenone [Co Q-10] 10 mg PO DAILY 02/17/21 02/17/21 History Allergies Allergy/AdvReac Type Severity Reaction Status Date / Time carisoprodol [From Soma] AdvReac Intermediate Hypotension Verified 02/18/21 14:58 Exam Vital signs and Labs for Last 24 Hours: Temp Pulse Resp BP Pulse Ox 98.4 F 115 H 14 157/83 H 100 02/18/21 14:58 02/18/21 14:58 02/18/21 14:58 02/18/21 14:58 02/18/21 14:58 Laboratory Results - last 24 hr 02/18/21 10:54: WBC 10.6, RBC 2.43 L, Hgb 7.1 L, Hct 22.5 L, MCV 92.4, MCH 29.1, MCHC 31.5 L, RDW 15.3, Plt Count 255, MPV 9.2, Neut % (Auto) 80.3 H, Lymph % (Auto) 14.0, [place] % (Auto) 5.0, Eos % (Auto) 0.3, Baso % (Auto) 0.4, Neut # (Auto) 8.5 H, Lymph # (Auto) 1.5, [place] # (Auto) 0.5, Eos # (Auto) 0.0, Baso # (Auto) 0.0 02/18/21 10:54: Iron 19 L, TIBC 388, Iron Saturation 4.49789 L I & O for Last 24 hours: Intake & Output 02/16/21 02/17/21 02/18/21 02/19/21 11:59 11:59 11:59 11:59 Weight 205 lb 6 oz - Constitutional no acute distress - *Routine HEENT Exam Head: Present: normocephalic Eye: Present: EOMI, PERRL ENT: Present: mucous membranes moist - *Routine Neck Exam Present: supple. Absent: lymphadenopathy - *Routine Respiratory Exam Absent: accessory muscle use - *Routine Cardiovascular Exam Present: RRR - *Routine Abdominal Exam Present: soft. Absent: tenderness - *Routine Extremities Exam Absent: cyanosis, clubbing, edema - *Routine Skin E
[2021-02-18 16:02] LABS: INR 1.07 (0.9-1.1)
--- NOTE | 2021-02-18 17:49 | HMH.HP ---
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 States he came to the ER overnight from Wednesday to Wednesday because of fatigue, labs were obtained showing hemoglobin of 8.9. This is down from a hemoglobin of 14 4 to 6 months ago. Has noted some black stool over the past few days. No bright red blood per rectum. Having some right lower abdominal pain, no epigastric pain. Denies any fever, vomiting, nausea, confusion. Mild dizziness when he stands and fatigue. concerned because he has become more pale over the past few months. Labs obtained when he left the office today showing hemoglobin now at 7.1. Decision made to admit patient for transfusion, and surgical consult given concern for GI bleed and worsening anemia. Of note, he has a history of lap band surgery in 2010. Has lost almost 100 pounds. Has been taking Plavix, aspirin, Celebrex daily with no use of a PPI. [facility] History I have reviewed the patient's past medical history: Yes Medical History: Reports:: Hyperlipidemia, Hypertension Denies:: Cancer, Diabetes Mellitus Type 1, Diabetes Mellitus Type 2, Internal Pacemaker, MRSA, Seizures *Have you ever received a pneumonia vaccine?: Yes *Have you received a flu vaccine this season?: No Other Medical History: Reports: Arthritis. Denies: Blood Transfusion Reaction Laterality Cases: Right: Arthroscopy Shoulder, Bilateral: Arthroscopy Knee Other Surgeries: Yes: Cardiac Catheterization, Cholecystectomy, Other (lap band, cochlear implant). No: Pacemaker Amputation: No Fractures: No - *Social History Last grade of school completed: Some college Smoking Status: Light tobacco smoker Tobacco Type: smokeless tobacco # Packs/Day (cigarettes): 1 Alcohol Intake: never *Occupational Status:: retired Housing: house Household Members: spouse *Travel in the last 8 weeks: None Family Hx:: No significant family history Review of Systems - Review of Systems Review of systems:: pertinent systems reviewed and negative unless documented below (14 point review of systems performed, pertinent positives and negatives as per HPI) Meds Home Medications Medication Instructions Recorded Confirmed Type Celecoxib 400 mg PO BID 06/05/19 02/18/21 History Clopidogrel Bisulfate [Clopidogrel 75 mg PO DAILY 06/05/19 02/18/21 History 75mg Tab] Losartan Potassium 25 mg PO DAILY 06/05/19 02/18/21 History Ascorbic Acid [Vitamin C 500mg 500 mg PO DAILY 02/17/21 02/18/21 History tablet] Multivitamin [Multi-Vitamin Plain] 1 tab PO DAILY 02/17/21 02/18/21 History Ubidecarenone [Co Q-10] 10 mg PO DAILY 02/17/21 02/18/21 History Acetaminophen [Tylenol Arthritis] 525 tab PO BID 02/18/21 02/18/21 History Aspirin 81 tab PO DAILY 02/18/21 02/18/21 History Pantoprazole Sodium [Protonix 40mg 40 tab PO DAILY 02/18/21 02/18/21 History tablet] Allergies Allergy/AdvReac Type Severity Reaction Status Date / Time carisoprodol [From Soma] AdvReac Intermediate Hypotension Verified 02/18/21 14:58 Exam Vital signs and Labs for Last 24 Hours: Temp Pulse Resp BP Pulse Ox 98.4 F 115 H 14 157/83 H 100 02/18/21 14:58 02/18/21 14:58 02/18/21 14:58 02/18/21 14:58 02/18/21 14:58 Laboratory Results - last 24 hr 02/18/21 10:54: WBC 10.6, RBC 2.43 L, Hgb 7.1 L, Hct 22.5 L, MCV 92.4, MCH 29.1, MCHC 31.5 L, RDW 15.3, Plt Count 255, MPV 9.2, Neut % (Auto) 80.3 H, Lymph % (Auto) 14.0, [place] % (Auto) 5.0, Eos % (Auto) 0.3, Baso % (Auto) 0.4, Neut # (Auto) 8.5 H, Lymph # (Auto) 1.5, [place] # (Auto) 0.5, Eos # (Auto) 0.0, Baso # (Auto) 0.0 02/18/21 10:54: Iron 19 L, TIBC 388, Iron Saturation 4.95292 L 02/18/21 11:05: Blood Type Confirm A Positive 02/18/21 14:50: SARS-CoV-2 (PCR) Not detected, Influenza A Untype (PCR) Not detected, Influenza Type B (PCR) Not detected 02/18/21 15:40: PT 12.0, INR
[2021-02-18 22:49] LABS: Hemoglobin 6.4 g/dL (14.1-18.0)
[2021-02-18 22:50] LABS: Hematocrit 20.5 % (42.0-52.0)
[2021-02-19] VITALS (36 sets, daily range): BP systolic 97–143; BP diastolic 56–96; PULSE 63–79; RESP 14–18; TEMP 36.4–37.1; O2SAT 94–100; BMI 29.9
--- NOTE | 2021-02-19 06:45 | PC.NURSE ---
Addendum entered by Tricia Higuera CNA 02/19/21 06:54: CORRECTION -CORRECT TIME OFF FLOOR [id number] Original Note: PT OFF FLOOR VIA BED WITH OR STAFF @ 0.45
[2021-02-19 06:46] LABS: Basophils % 0.5 % (0.1-2.0); Eosinophils # 0.1 K/mm3 (0.0-0.4); Eosinophils % 0.8 % (0.1-12.0); Hematocrit 31.5 % (42.0-52.0); Lymphocytes # 1.9 K/mm3 (0.7-4.5); Lymphocytes % 21.3 % (10-50); Mean Corpuscular HGB Conc 31.8 g/dL (31.8-35.4); Mean Corpuscular Hemoglobin 30.4 pg (27.0-31.2); Mean Corpuscular Volume 95.5 fl (80-94); Mean Platelet Volume 9.9 fl (7.4-10.4); Monocytes # 0.5 K/mm3 (0.1-1.0); Monocytes % 6.1 % (1.7-9.3); Neutrophils # 6.3 K/mm3 (1.8-7.8); Neutrophils % 71.3 % (37.0-80.0); Platelet Count 228 K/mm3 (142-424); Red Blood Count 3.29 M/mm3 (4.60-6.20); Red Cell Distribution Width 15.1 % (11.5-17.5); White Blood Count 8.9 K/mm3 (4.8-10.8)
--- NOTE | 2021-02-19 06:59 | PC.NURSE ---
LATE ENTRY Ninfa from lab called at 2250 with a critical H/H on patient Name, , & value verified x2 MD dean of admissions paged, called back at [phone] New orders received: 2 units of PRBC now w/ 2 hour post H/H Protonix drip started NOW IV, pharmacy to dose Spoke with night watch and verified protonix dose
--- NOTE | 2021-02-19 07:07 | HMH.GSPN ---
Subjective Narrative: Patient without complaints. He did receive 1 unit of packed red blood cells for hemoglobin of 7.1 with posttransfusion hemoglobin of 6.4. He has received subsequently a couple of additional units. Progress Note: A&P (1) GI bleed Status: Acute (2) Acute blood loss anemia Status: Acute (3) Iron deficiency anemia due to chronic blood loss Status: Acute Assessment and Plan for All Diagnoses:: EGD this morning. Exam Vital signs and Labs for Last 24 Hours: Temp Pulse Resp BP Pulse Ox 97.8 F 72 17 128/68 98 02/19/21 06:40 02/19/21 06:40 02/19/21 06:40 02/19/21 06:40 02/19/21 06:40 Laboratory Results - last 24 hr 02/18/21 10:54: WBC 10.6, RBC 2.43 L, Hgb 7.1 L, Hct 22.5 L, MCV 92.4, MCH 29.1, MCHC 31.5 L, RDW 15.3, Plt Count 255, MPV 9.2, Neut % (Auto) 80.3 H, Lymph % (Auto) 14.0, [place] % (Auto) 5.0, Eos % (Auto) 0.3, Baso % (Auto) 0.4, Neut # (Auto) 8.5 H, Lymph # (Auto) 1.5, [place] # (Auto) 0.5, Eos # (Auto) 0.0, Baso # (Auto) 0.0 02/18/21 10:54: Iron 19 L, TIBC 388, Iron Saturation 4.84069 L 02/18/21 11:05: Blood Type Confirm A Positive 02/18/21 14:50: SARS-CoV-2 (PCR) Not detected, Influenza A Untype (PCR) Not detected, Influenza Type B (PCR) Not detected 02/18/21 15:40: PT 12.0, INR 1.07 02/18/21 15:40: Blood Type A Positive, Antibody Screen Negative, Crossmatch (AHG) See Detail 02/18/21 22:35: Hgb 6.4 L*, Hct 20.5 L* 02/19/21 06:32: WBC 8.9, RBC 3.29 L D, Hct 31.5 L, MCV 95.5 H, MCH 30.4, MCHC 31.8, RDW 15.1, Plt Count 228, MPV 9.9, Neut % (Auto) 71.3, Lymph % (Auto) 21.3, [place] % (Auto) 6.1, Eos % (Auto) 0.8, Baso % (Auto) 0.5, Neut # (Auto) 6.3, Lymph # (Auto) 1.9, [place] # (Auto) 0.5, Eos # (Auto) 0.1, Baso # (Auto) 0.0 I & O for Last 24 hours: Intake & Output 02/16/21 02/17/21 02/18/21 02/19/21 11:59 11:59 11:59 11:59 Intake Total 1110 / 1110 Balance 1110 / 1110 Weight 208 lb 12.8 oz - *Routine Abdominal Exam Present: soft
[2021-02-19 07:12] LABS: Anion Gap 11.6 mEq/L (5-15); Blood Urea Nitrogen 19 mg/dl (9-20); Calcium 8.6 mg/dl (8.4-10.2); Carbon Dioxide 23 mmol/L (22.0-30.0); Chloride 104 mmol/L (98-107); Creatinine Clearance Estimated 95 mL/min (50-200); Estimated Glomerular Filt Rate 84 ml/min (>60); GFR (African American) 102 ML/MIN (>60); Glucose 109 mg/dl (74-100); Potassium 3.6 mmoL/L (3.5-5.1); Sodium 135 mmol/L (136-145)
--- NOTE | 2021-02-19 07:14 | P.PN_ITS ---
[facility] Anesthesia Checklist - Patient Identification Patient Identification: Arm Band - Structural Data Admitted From: Home Planned Operative Procedure/s: EGD Consent for Planned Operative Procedure(s) Verified: Yes - NPO Status Verified Time NPO: 00:00 - Additional verifications Anesthesia Reactions: No Hx Blood Transfusions: No Blood Transfusion Reaction: No - Airway Assessment C-Spine Mobility Assessed: Yes TMJ Mobility Assessed: Yes Dentition: Good Dentition - Neurological Assessment Level of Consciousness: Awake Hx Seizures: No Numbness or tingling in extremities: No - Anesthesia Plan Anesthesia Risk discussed: Yes Anesthesia Plan: Verified ASA Class: II Anesthesia Type: MAC [facility] History I have reviewed the patient's past medical history: Yes Medical History: Reports:: Hyperlipidemia, Hypertension Denies:: Cancer, Diabetes Mellitus Type 1, Diabetes Mellitus Type 2, Internal Pacemaker, MRSA, Seizures *Have you ever received a pneumonia vaccine?: Yes *Have you received a flu vaccine this season?: No Other Medical History: Reports: Arthritis. Denies: Blood Transfusion Reaction Anesthesia experience/problems:: None Laterality Cases: Right: Arthroscopy Shoulder, Bilateral: Arthroscopy Knee Other Surgeries: Yes: Cardiac Catheterization, Cholecystectomy, Other (lap band, cochlear implant). No: Pacemaker Amputation: No Fractures: No - *Social History Last grade of school completed: Some college Smoking Status: Light tobacco smoker Tobacco Type: smokeless tobacco # Packs/Day (cigarettes): 1 Alcohol Intake: never Substance Use Type: denies use *Occupational Status:: retired Housing: house Household Members: spouse *Travel in the last 8 weeks: None Family Hx:: No significant family history
--- NOTE | 2021-02-19 07:44 | P.PCN_ITS ---
- Procedure: Date: 02/19/21 Patient Date of :: 1950 Procedure Performed:: Esophagogastroduodenoscopy Indications:: Patient is a 70-year-old male from [facility] who had undergone previous laparoscopic band by Dr. Bob Norton at [facility] in [place] in 2010 for morbid obesity. Patient does state that he has lost about 100 pounds. He is on Celebrex and Plavix. He had presented to the emergency department with in the very early hours yesterday on 02/18/2020 with symptoms of dizziness and apparent syncope with some exertional shortness of breath and nausea. Evaluation in the emergency department revealed hemoglobin of 8.9 with hematoc rit of 28.9%. Baseline hemoglobin 14. He was also noted to have a BUN of 43 with a creatinine of 0.9. He was found to be Hemoccult negative. Patient was managed as an outpatient. Follow-up today revealed hemoglobin of 7.1. Arrangements were made for inpatient admission. Patient has noted some melena. Denies any known prior history of ulcer disease. He did undergo previous EGD when he had evaluation for lap band. He did receive 1 unit of packed red blood cells for hemoglobin of 7.1 with posttransfusion hemoglobin of 6.4. He has received subsequently a couple of additional units with resultant hemoglobin of 10.0. Performing Provider:: Adriel Apple MD Referring Provider:: Luis Antonio Fernandes MD Sedation:: MAC sedation Procedure:: Patient was taken to endoscopy procedure room. He was positioned in lateral decubitus position. Adequate intravenous sedation was achieved with anesthesia titration of propofol. Olympus endoscope was inserted via the oropharynx. Esophagus was cannulated. Overall esophagus appeared unremarkable. There was some minor focal esophagitis at the gastroesophageal junction at 40 cm from the incisors. Stomach was then cannulated. There is a very large amount of undigested food matter and fatty liquid in the stomach. Attempt was made to suction this free without much success. With repeated use of the Fuller net undigested food matter was able to be extracted as the Fuller net and endoscope were repeatedly withdrawn and reinserted. Ultimately somewhat fair visualization was achieved within the proximal stomach. Concentric narrowing at the site of the Lap-Band was encountered at approximately 45 cm from the incisors. There is some minor gastritis. Distal stomach was cannulated. There was no obvious evidence of any bleeding or gastritis. Pylorus was traversed. Duodenal bulb and first and second portion of the duodenum appeared unr emarkable. Distal and proximal stomach were then desufflated as the endoscope was withdrawn. Findings:: Gastroesophageal junction at 40 cm from incisors with mild to moderate focal esophagitis Very large amount of undigested food matter within the proximal stomach proximal to the Lap-Band obscuring visualization Focal gastritis at the site of the Lap-Band without any evidence of obvious active bleeding Stomach and duodenum distal to the Lap-Band unremarkable Overall poor visualization but no evidence of any definite active bleeding Recommendations:: I would limit him to clear liquid diet at this time. Monitor hemoglobin hematocrit for stability. May require repeat endoscopy with several days of clear liquid in the near future, particularly if he shows decreasing hemoglobin hematocrit once again. Complications:: None immediately apparent Estimated blood obtained (mL): 0
--- NOTE | 2021-02-19 07:57 | HMH.PHAVTE ---
[facility] Pharmacy VTE Monitoring - Patient Demographics Admission date: 02/19/21 Report Date: 02/19/21 Time: 07:57 Allergies/Adverse Reactions: Patient Allergies carisoprodol [From Soma] Adverse Reaction (Intermediate, Verified 02/18/21 14:58) Hypotension Height: 1.78 m Weight: 94.71 kg Patient Problems: Current Active Problems GI bleed (Acute) Acute blood loss anemia (Acute) Iron deficiency anemia due to chronic blood loss (Acute) - VTE Risk Labs: VTE Related Lab Results Hgb 10.0 g/dL (14.1-18.0) L D 02/19/21 06:32 Hct 31.5 % (42.0-52.0) L 02/19/21 06:32 Plt Count 228 K/mm3 (142-424) 02/19/21 06:32 PT 12.0 seconds (10.1-12.5) 02/18/21 15:40 INR 1.07 (0.9-1.1) 02/18/21 15:40 BUN 19 mg/dl (9-20) D 02/19/21 06:32 Creatinine 0.90 mg/dl (0.66-1.25) 02/19/21 06:32 Estimated Creat Clear 95 mL/min (50-200) 02/19/21 06:32 VTE Risk Level: Very Low Risk Clinical Trial Participant: No - Prophylaxis VTE Prophylaxis Ordered?: Yes Types of VTE Prophylaxis: TEDS Knee High Location of Applied Device: Bilateral Lower Extremeties
--- NOTE | 2021-02-19 08:44 | P.PN_ITS ---
Internal Medicine - PN: Subj *Date: 02/19/21 *Time: 08:44 Interval history: Patient tolerated EGD today. Appreciate surgery input and expertise. Note reviewed. Discussed findings with patient Exam Vital signs and Labs for Last 24 Hours: Temp Pulse Resp BP Pulse Ox 98 F 64 16 104/69 L 94 L 02/19/21 07:46 02/19/21 08:02 02/19/21 08:02 02/19/21 08:02 02/19/21 08:02 Laboratory Results - last 24 hr 02/18/21 10:54: WBC 10.6, RBC 2.43 L, Hgb 7.1 L, Hct 22.5 L, MCV 92.4, MCH 29.1, MCHC 31.5 L, RDW 15.3, Plt Count 255, MPV 9.2, Neut % (Auto) 80.3 H, Lymph % (Auto) 14.0, [place] % (Auto) 5.0, Eos % (Auto) 0.3, Baso % (Auto) 0.4, Neut # (Auto) 8.5 H, Lymph # (Auto) 1.5, [place] # (Auto) 0.5, Eos # (Auto) 0.0, Baso # (Auto) 0.0 02/18/21 10:54: Iron 19 L, TIBC 388, Iron Saturation 4.22762 L 02/18/21 11:05: Blood Type Confirm A Positive 02/18/21 14:50: SARS-CoV-2 (PCR) Not detected, Influenza A Untype (PCR) Not detected, Influenza Type B (PCR) Not detected 02/18/21 15:40: PT 12.0, INR 1.07 02/18/21 15:40: Blood Type A Positive, Antibody Screen Negative, Crossmatch (AHG) See Detail 02/18/21 22:35: Hgb 6.4 L*, Hct 20.5 L* 02/19/21 06:32: WBC 8.9, RBC 3.29 L D, Hgb 10.0 L D, Hct 31.5 L, MCV 95.5 H, MCH 30.4, MCHC 31.8, RDW 15.1, Plt Count 228, MPV 9.9, Neut % (Auto) 71.3, Lymph % (Auto) 21.3, [place] % (Auto) 6.1, Eos % (Auto) 0.8, Baso % (Auto) 0.5, Neut # (Auto) 6.3, Lymph # (Auto) 1.9, [place] # (Auto) 0.5, Eos # (Auto) 0.1, Baso # (Auto) 0.0 02/19/21 06:32: Sodium 135 L, Potassium 3.6, Chloride 104, Carbon Dioxide 23, Anion Gap 11.6, BUN 19 D, Creatinine 0.90, Estimated Creat Clear 95, Estimated GFR 84, Est GFR ( Amer) 102, Glucose 109 H, Calcium 8.6 I & O for Last 24 hours: Intake & Output 02/16/21 02/17/21 02/18/21 02/19/21 11:59 11:59 11:59 11:59 Intake Total 1110 / 1110 Balance 1110 / 1110 Weight 208 lb 12.8 oz Narrative: Alert, oriented, pleasant, lungs clear, heart rate regular. Abdomen soft, nontender. No neurologic deficits. No edema or perfusion problems Assessment and Plan (1) GI bleed Status: Acute Category: Medical Code(s): K92.2 - Gastrointestinal hem orrhage, unspecified (2) Acute blood loss anemia Status: Acute Category: Medical Code(s): D62 - Acute posthemorrhagic anemia (3) Iron deficiency anemia due to chronic blood loss Status: Acute Category: Medical Code(s): D50.0 - Iron deficiency anemia secondary to blood loss (chronic) - Assessment and plan all Dx Assessment and Plan for all problems:: We will check hemoglobin later tonight and tomorrow, clear liquid diet, possible discharge on clear liquid diet with serial outpatient hemoglobin if stable over the next 24 hours
--- NOTE | 2021-02-19 09:21 | HMH.PHAINT ---
VERIFIED PT MEDS BY CALLING PHARMACY
--- NOTE | 2021-02-19 10:14 | DIET.NUTRFU ---
Patient plans to discharge on clear liquids, patient had a EGD today but may need another one depending on Hgb. Todays EGD had food that may have been blocking areas where the bleeding was. Continue on clear liquids so if need another EGD there will not be food present. RD provided handout on clear liquids foods to consume. seemed familiar with recommended diet. Patient underwent previous laparoscopic band by Dr. Bob Norton at [facility] in [place] in 2010 for morbid obesity. Patient does state that he has lost about 100 pounds. Reviewed special diet plan for lap band, indicated he does not follow some recommendations, he does not eat slowly or chew food up very well. Encouarged him when diet is advanced to follow recommendations.
--- NOTE | 2021-02-19 16:15 | PC.NURSE ---
PT SITTING UP IN CHAIR TALKING WITH . ALERT & ORIENTED X 4. PT WITHOUT NEEDS OR CONCERNS. DENIES PAIN, TOLERATING CLEAR LIQUID DIET. VITAL SIGNS STABLE. NO EMESIS OR BLOODY STOOLS. NO NAUSEA. PT PLEASANT. IV PATENT TO RIGHT FOREARM X2. CALL LIGHT WITHIN REACH.
[2021-02-19 18:13] LABS: Basophils % 0.4 % (0.1-2.0); Eosinophils % 0.5 % (0.1-12.0); Hematocrit 29.1 % (42.0-52.0); Hemoglobin 9.4 g/dL (14.1-18.0); Lymphocytes # 1.3 K/mm3 (0.7-4.5); Lymphocytes % 19.5 % (10-50); Mean Corpuscular HGB Conc 32.4 g/dL (31.8-35.4); Mean Corpuscular Hemoglobin 30.6 pg (27.0-31.2); Mean Corpuscular Volume 94.6 fl (80-94); Mean Platelet Volume 9.7 fl (7.4-10.4); Monocytes # 0.4 K/mm3 (0.1-1.0); Neutrophils % 73.6 % (37.0-80.0); Platelet Count 193 K/mm3 (142-424); Red Blood Count 3.08 M/mm3 (4.60-6.20); Red Cell Distribution Width 15.1 % (11.5-17.5); White Blood Count 6.8 K/mm3 (4.8-10.8)
[2021-02-20] VITALS (8 sets, daily range): BP systolic 103–113; BP diastolic 61–68; PULSE 61–80; RESP 15–16; TEMP 36.5–36.8; O2SAT 96–100; BMI 29.5; BMI 29.6
--- NOTE | 2021-02-20 03:51 | PC.NURSE ---
Pt has slept in intervals this shift. BLT Lungs CTA, bowel sounds present in all 4 quadrants. Pt abdomen soft and non-tender. Pt is on RA. IVs patent and infusing well. Pt denies any SOA, headache, N/V/D, or pain this shift. VSS
[2021-02-20 06:36] LABS: Basophils % 0.3 % (0.1-2.0); Eosinophils # 0.1 K/mm3 (0.0-0.4); Hematocrit 26.7 % (42.0-52.0); Hemoglobin 8.7 g/dL (14.1-18.0); Lymphocytes # 1.6 K/mm3 (0.7-4.5); Lymphocytes % 21.8 % (10-50); Mean Corpuscular HGB Conc 32.4 g/dL (31.8-35.4); Mean Corpuscular Hemoglobin 30.3 pg (27.0-31.2); Mean Corpuscular Volume 93.5 fl (80-94); Monocytes # 0.5 K/mm3 (0.1-1.0); Monocytes % 6.7 % (1.7-9.3); Neutrophils % 70.2 % (37.0-80.0); Platelet Count 185 K/mm3 (142-424); Red Blood Count 2.85 M/mm3 (4.60-6.20); Red Cell Distribution Width 15.2 % (11.5-17.5); White Blood Count 7.2 K/mm3 (4.8-10.8)
[2021-02-20 06:54] LABS: Anion Gap 9.6 mEq/L (5-15); Blood Urea Nitrogen 10 mg/dl (9-20); Calcium 8.4 mg/dl (8.4-10.2); Carbon Dioxide 28 mmol/L (22.0-30.0); Chloride 103 mmol/L (98-107); Creatinine Clearance Estimated 94 mL/min (50-200); Estimated Glomerular Filt Rate 84 ml/min (>60); GFR (African American) 102 ML/MIN (>60); Glucose 96 mg/dl (74-100); Potassium 3.6 mmoL/L (3.5-5.1); Sodium 137 mmol/L (136-145)
--- NOTE | 2021-02-20 08:43 | P.PN_ITS ---
Internal Medicine - PN: Subj *Date: 02/20/21 *Time: 08:43 Interval history: Overall patient feels good, has noticed no stigmata of GI bleeding with no bowel movements. Has had no vomiting. No nasal or cough bleeding. Exam Vital signs and Labs for Last 24 Hours: Temp Pulse Resp BP Pulse Ox 97.7 F 78 16 113/67 100 02/20/21 07:56 02/20/21 07:56 02/20/21 07:56 02/20/21 07:56 02/20/21 07:56 Laboratory Results - last 24 hr 02/19/21 17:57: WBC 6.8, RBC 3.08 L, Hgb 9.4 L, Hct 29.1 L, MCV 94.6 H, MCH 3 0.6, MCHC 32.4, RDW 15.1, Plt Count 193, MPV 9.7, Neut % (Auto) 73.6, Lymph % (Auto) 19.5, [place] % (Auto) 6.0, Eos % (Auto) 0.5, Baso % (Auto) 0.4, Neut # (Auto) 5.0, Lymph # (Auto) 1.3, [place] # (Auto) 0.4, Eos # (Auto) 0.0, Baso # (Auto) 0.0 02/20/21 05:22: WBC 7.2, RBC 2.85 L, Hgb 8.7 L, Hct 26.7 L, MCV 93.5, MCH 30.3, MCHC 32.4, RDW 15.2, Plt Count 185, MPV 9.0, Neut % (Auto) 70.2, Lymph % (Auto) 21.8, [place] % (Auto) 6.7, Eos % (Auto) 1.0, Baso % (Auto) 0.3, Neut # (Auto) 5.0, Lymph # (Auto) 1.6, [place] # (Auto) 0.5, Eos # (Auto) 0.1, Baso # (Auto) 0.0 02/20/21 05:22: Sodium 137, Potassium 3.6, Chloride 103, Carbon Dioxide 28, Anion Gap 9.6, BUN 10 D, Creatinine 0.90, Estimated Creat Clear 94, Estimated GFR 84, Est GFR ( Amer) 102, Glucose 96, Calcium 8.4 I & O for Last 24 hours: Intake & Output 02/17/21 02/18/21 02/19/21 02/20/21 11:59 11:59 11:59 11:59 Intake Total 1110 / 1110 1550 / 1550 Balance 1110 / 1110 1550 / 1550 Weight 208 lb 12.8 oz 206 lb 3 oz Narrative: Pleasant, no distress. Lungs clear, heart rate regular. Abdomen soft. No distention or masses except for as previously noted lap band structure, extremities are warm and well-perfused and he is neurologically intact. ENT exam clear Assessment and Plan (1) GI bleed Status: Acute Category: Medical Code(s): K92.2 - Gastrointestinal hemorrhage, unspecified (2) Acute blood loss anemia Status: Acute Category: Medical Code(s): D62 - Acute posthemorrhagic anemia (3) Iron deficiency anemia due to chronic blood loss Status: Acute Category: Medical Code(s): D50.0 - Iron deficiency anemia secondary to blood loss (chronic) - Assessment and plan all Dx Assessment and Plan for all problems:: GI bleed-hemoglobin has dropped slightly. Not at the transfused level. This seems to be equilibration, however I will see if surgery wishes to chart changer. Otherwise patient might be able to be discharged home this afternoon with short-term hemoglobin follow-up and short-term plans for EGD.
--- NOTE | 2021-02-20 10:12 | HMH.GSPN ---
Subjective Narrative: Patient is without complaints. He is anxious to go home. He did show some slight decrease in hemoglobin from 10.0-8.7. Progress Note: A&P (1) GI bleed Status: Acute (2) Acute blood loss anemia Status: Acute (3) Iron deficiency anemia due to chronic blood loss Status: Acute Assessment and Plan for All Diagnoses:: I had contacted [facility] for weight loss surgery at [facility]. Advice was given about aspiration to deflate the band. At the bedside I aspirated saline deflating the Lap-Band. Recommend continuing clear liquid diet today with planned repeat upper endoscopy tomorrow. Exam Vital signs and Labs for Last 24 Hours: Temp Pulse Resp BP Pulse Ox 97.7 F 78 16 113/67 100 02/20/21 07:56 02/20/21 07:56 02/20/21 07:56 02/20/21 07:56 02/20/21 08:00 Laboratory Results - last 24 hr 02/19/21 17:57: WBC 6.8, RBC 3.08 L, Hgb 9.4 L, Hct 29.1 L, MCV 94.6 H, MCH 30.6, MCHC 32.4, RDW 15.1, Plt Count 193, MPV 9.7, Neut % (Auto) 73.6, Lymph % (Auto) 19.5, [place] % (Auto) 6.0, Eos % (Auto) 0.5, Baso % (Auto) 0.4, Neut # (Auto) 5.0, Lymph # (Auto) 1.3, [place] # (Auto) 0.4, Eos # (Auto) 0.0, Baso # (Auto) 0.0 02/20/21 05:22: WBC 7.2, RBC 2.85 L, Hgb 8.7 L, Hct 26.7 L, MCV 93.5, MCH 30.3, MCHC 32.4, RDW 15.2, Plt Count 185, MPV 9.0, Neut % (Auto) 70.2, Lymph % (Auto) 21.8, [place] % (Auto) 6.7, Eos % (Auto) 1.0, Baso % (Auto) 0.3, Neut # (Auto) 5.0, Lymph # (Auto) 1.6, [place] # (Auto) 0.5, Eos # (Auto) 0.1, Baso # (Auto) 0.0 02/20/21 05:22: Sodium 137, Potassium 3.6, Chloride 103, Carbon Dioxide 28, Anion Gap 9.6, BUN 10 D, Creatinine 0.90, Estimated Creat Clear 94, Estimated GFR 84, Est GFR ( Amer) 102, Glucose 96, Calcium 8.4 I & O for Last 24 hours: Intake & Output 02/17/21 02/18/21 02/19/21 02/20/21 11:59 11:59 11:59 11:59 Intake Total 1110 / 1110 1550 / 1550 Balance 1110 / 1110 1550 / 1550 Weight 208 lb 12.8 oz 206 lb 3 oz - *Routine Abdominal Exam Present: soft
--- NOTE | 2021-02-20 16:25 | PC.NURSE ---
Routine reassessment completed. See Nursing Biophysical. Pt. appears paler than this am. Pt. has rested well this shift, and walked around unit some, Pt. denies needs, will continue to monitor.
[2021-02-20 18:22] LABS: Basophils % 0.2 % (0.1-2.0); Eosinophils # 0.1 K/mm3 (0.0-0.4); Hematocrit 29.2 % (42.0-52.0); Hemoglobin 9.3 g/dL (14.1-18.0); Lymphocytes % 14.9 % (10-50); Mean Corpuscular Hemoglobin 30.3 pg (27.0-31.2); Mean Corpuscular Volume 94.9 fl (80-94); Mean Platelet Volume 9.9 fl (7.4-10.4); Monocytes # 0.3 K/mm3 (0.1-1.0); Monocytes % 5.1 % (1.7-9.3); Neutrophils # 5.3 K/mm3 (1.8-7.8); Neutrophils % 78.9 % (37.0-80.0); Platelet Count 184 K/mm3 (142-424); Red Blood Count 3.08 M/mm3 (4.60-6.20); White Blood Count 6.7 K/mm3 (4.8-10.8)
--- NOTE | 2021-02-20 20:03 | PC.NURSE ---
Late entry - 10:11 - Dr. Apple at bedside. MD wishes to perform bedside procedure of Lap band Adjustment. performed procedure. 7ML removed from Lap band. Telfa and tegaderm in place. Pt. tolerated well.
[2021-02-21] VITALS (10 sets, daily range): BP systolic 95–122; BP diastolic 53–69; PULSE 60–74; RESP 14–18; TEMP 36.4–37.1; O2SAT 96–99; BMI 29.2
--- NOTE | 2021-02-21 05:45 | PC.NURSE ---
Addendum entered by Loulou Bañuelos RN 02/21/21 05:48: PT HAS SLEPT THROUGHOUT THE NIGHT,PT HAS BEEN NPO SINCE MIDNIGHT FOR A [facility] EGD THIS MORNING Original Note: NO ACUTE CHANGES
--- NOTE | 2021-02-21 07:27 | HMH.SCOPE ---
- Procedure: Date: 02/21/21 Patient Date of :: 1950 Procedure Performed:: Esophagogastroduodenoscopy Indications:: Patient is a 70-year-old male from [facility] who had undergone previous laparoscopic band by Dr. Bob Norton at [facility] in [place] in 2010 for morbid obesity. Patient does state that he has lost about 100 pounds. He is normally on Celebrex and Plavix. He had presented to the emergency department with in the very early hours yesterday on 02/18/2020 with symptoms of dizziness and apparent syncope with some exertional shortness of breath and nausea. Evaluation in the emergency department revealed hemoglobin of 8.9 with hematocrit of 28.9%. Baseline hemoglobin 14. He was also noted to have a BUN of 43 with a creatinine of 0.9. He was found to be Hemoccult negative. Patient was managed as an outpatient. Follow-up today revealed hemoglobin of 7.1. Arrangements were made for inpatient admission. Patient has noted some melena. Denies any known prior history of ulcer disease. He did undergo previous EGD when he had evaluation for lap band. He did receive 1 unit of packed red blood cells for hemoglobin of 7.1 with posttransfusion hemoglobin of 6.4. He has received subsequently a couple of additional units with resultant hemoglobin of 10.0. He underwent EGD on 02/19/2021. There was a large amount of retained food matter in the proximal stomach proximal to the Lap-Band. Much of this was evacuated with retrieval with the Fuller net. Visualization was suboptimal but there was no obvious source of bleeding. There was no active bleeding. Patient has remained subsequently stable with hemoglobin of approximately 9 for a couple of days. Yesterday the Lap-Band was deflated to help with gastric emptying and visualization and plan was made for follow-up EGD. Performing Provider:: Adriel Apple MD Referring Provider:: Luis Antonio Fernandes MD Sedation:: MAC sedation Procedure:: Patient was taken to endoscopy procedure room. He was positioned in lateral decubitus position. Adequate intravenous sedation was achieved with anesthesia titration of propofol. Olympus endoscope was inserted via the oropharynx. Esophagus was cannulated. Majority of the esophagus appeared normal. Gastroesophageal junction was encountered at approximately 40 cm from the incisors. Stomach was cannulated. There was good visualization at this time. In the stomach proximal to the Lap-Band there was no evidence of any food matter at this time. There was no evidence of any active bleeding. The constricted proximal stomach at the site of the Lap-Band was traversed. There was noted to be signs of an erosion at this location with no active bleeding. Distal stomach was cannulated. This appeared unremarkable. Pylorus was traversed. First second third portion of the duodenum appeared unremarkable. Endoscope was withdrawn into the stomach once again and then the proximal stomach proximal to the Lap-Band. There was at this time noted to be some minor oozing at the site of this erosion. This was felt to likely be his source of bleeding previously. Stomach was desufflated and the endoscope was withdrawn. Findings:: Friable erosion/shallow ulceration at site of lap band Gastroesophageal junction at 40 cm. Recommendations:: Source of recent upper GI bleed likely gastric erosion at the site of the Lap-Band. No stigmata of recent bleeding or active bleeding at this time. Recommend expectant management. May need repeat EGD after treatment in several weeks. Complications:: None immediately apparent Estimated blood obtained (mL): 2
--- NOTE | 2021-02-21 08:49 | HMH.DCSUM ---
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 States he came to the ER overnight from Wednesday to Wednesday because of fatigue, labs were obtained showing hemoglobin of 8.9. This is down from a hemoglobin of 14 4 to 6 months ago. Has noted some black stool over the past few days. No bright red blood per rectum. Having some right lower abdominal pain, no epigastric pain. Denies any fever, vomiting, nausea, confusion. Mild dizziness when he stands and fatigue. concerned because he has become more pale over the past few months. Labs obtained when he left the office today showing hemoglobin now at 7.1. Decision made to admit patient for transfusion, and surgical consult given concern for GI bleed and worsening anemia. Of note, he has a history of lap band surgery in 2010. Has lost almost 100 pounds. Has been taking Plavix, aspirin, Celebrex daily with no use of a PPI. Hospital Course Hospital Course: Patient was admitted for acute worsening anemia. Suspected to be secondary to a GI source. Surgery was consulted, problems addressed as follows: Acute blood loss anemia GI bleed -Surgery consulted, patient taken for EGD morning after admission. Initial EGD showed retained food in stomach above Lap-Band, difficulty visualizing extent of irritation but did notice some gastritis/irritation of the stomach. No leo ulcers noted. Continue to monitor serial hemoglobins and treat with Protonix. Surgery consulted patient's surgeon who placed the Lap-Band and decision was made to deflate the Lap-Band. Repeat EGD performed before discharge showing gastritis and irritation at site of lap band. No active bleeding. Hemoglobin remained stable after receiving 3 units of blood. No further bleeding or melenic stools noted. Tolerating advancement of diet. We will plan to continue Protonix twice daily until follow-up and then daily thereafter. Instructed not to resume his aspirin, Plavix, Celebrex due to their likely cause of his GI bleed. Close follow-up in the next week with labs the beginning of the week to monitor stability of H&H Determined to be medically stable for discharge home. Examined on day of discharge. Will likely have repeat EGD in the coming weeks Objective Vital signs: Temp Pulse Resp BP Pulse Ox 97.5 F L 62 18 104/66 L 99 02/21/21 07:30 02/21/21 07:40 02/21/21 07:40 02/21/21 07:40 02/21/21 07:40 Narrative: - Constitutional no acute distress - *Routine HEENT Exam Head: Present: normocephalic Eye: Present: EOMI, PERRL ENT: Present: mucous membranes moist - *Routine Neck Exam Present: supple. Absent: lymphadenopathy - *Routine Respiratory Exam Present: CTA bilaterally - *Routine Cardiovascular Exam Present: RRR - *Routine Abdominal Exam Present: soft, normoactive bowel sounds, tenderness (improvement in Right lower quadrant, no epigastric pain) - *Routine Extremities Exam Absent: cyanosis, clubbing, edema - *Routine Skin Exam Present: pallor, warm. Absent: rash - *Routine Neurological Exam Present: alert, oriented X3 Results Labs on day of discharge: Labs from last 24 hours 02/20/21 18:04 WBC 6.7 RBC 3.08 L Hgb 9.3 L Hct 29.2 L MCV 94.9 H MCH 30.3 MCHC 32.0 RDW 15.0 Plt Count 184 MPV 9.9 Neut % (Auto) 78.9 Lymph % (Auto) 14.9 [place] % (Auto) 5.1 Eos % (Auto) 1.0 Baso % (Auto) 0.2 Neut # (Auto) 5.3 Lymph # (Auto) 1.0 [place] # (Auto) 0.3 Eos # (Auto) 0.1 Baso # (Auto) 0.0 DS: Diagnosis - Discharge Diagnosis (1) GI bleed Status: Acute (2) Acute blood loss anemia Status: Acute (3) Iron deficiency anemia due to chronic blood loss Status: Acute Discharge Plan - Patient Discharge Instructions ACTIVITY: Continue current activity DIET: advance to your usual diet Patien
--- NOTE | 2021-02-21 09:31 | HMH.PHAINT ---
DISCHARGE COUNSELING COMPLETED. PT AND VERBALIZE UNDERSTANDING THE DIRECTIONS TO HOLD ASPIRIN, CELEBREX AND PLAVIX UNTIL FOLLOWUP VISIT WITH
[2021-02-21 09:53] LABS: Basophils % 0.3 % (0.1-2.0); Eosinophils # 0.1 K/mm3 (0.0-0.4); Eosinophils % 1.4 % (0.1-12.0); Hematocrit 28.4 % (42.0-52.0); Hemoglobin 9.1 g/dL (14.1-18.0); Lymphocytes # 1.2 K/mm3 (0.7-4.5); Lymphocytes % 15.5 % (10-50); Mean Corpuscular HGB Conc 31.9 g/dL (31.8-35.4); Mean Corpuscular Hemoglobin 30.3 pg (27.0-31.2); Mean Corpuscular Volume 95.1 fl (80-94); Mean Platelet Volume 11.4 fl (7.4-10.4); Monocytes # 0.5 K/mm3 (0.1-1.0); Neutrophils # 5.7 K/mm3 (1.8-7.8); Neutrophils % 75.7 % (37.0-80.0); Platelet Count 191 K/mm3 (142-424); Red Blood Count 2.99 M/mm3 (4.60-6.20); Red Cell Distribution Width 15.3 % (11.5-17.5); White Blood Count 7.5 K/mm3 (4.8-10.8)
[2021-02-21 10:05] LABS: Anion Gap 11.2 mEq/L (5-15); Blood Urea Nitrogen 7 mg/dl (9-20); Calcium 8.5 mg/dl (8.4-10.2); Carbon Dioxide 27 mmol/L (22.0-30.0); Chloride 102 mmol/L (98-107); Creatinine Clearance Estimated 93 mL/min (50-200); Estimated Glomerular Filt Rate 96 ml/min (>60); GFR (African American) 116 ML/MIN (>60); Glucose 107 mg/dl (74-100); Potassium 3.2 mmoL/L (3.5-5.1); Sodium 137 mmol/L (136-145)
== END 2021-02-21 10:23 | disposition home or self-care (01) ==
LOC: 2ND 14:38
PROVIDERS: Internal Medicine Adolescent Medicine; Surgery; Admitting Provider Internal Medicine Adolescent Medicine; PCP Internal Medicine Adolescent Medicine; Visit Provider Internal Medicine Adolescent Medicine
PROC: 0DJ08ZZ Inspection of Upper Intestinal Tract, Via Natural or Artificial Opening Endoscopic (ICD-10-PCS; CPT 43235; principal; 2021-02-19 07:30)
DX: D50.0 Iron deficiency anemia secondary to blood loss (chronic) (principal); K92.2 Gastrointestinal hemorrhage, unspecified; Z79.01 Long term (current) use of anticoagulants; I10 Essential (primary) hypertension; E78.5 Hyperlipidemia, unspecified; Z20.822 Contact with and (suspected) exposure to COVID-19; Z79.899 Other long term (current) drug therapy; Z98.84 Bariatric surgery status; T45.525A Adverse effect of antithrombotic drugs, initial encounter; T39.015A Adverse effect of aspirin, initial encounter; T39.395A Adverse effect of other nonsteroidal anti-inflammatory drugs [NSAID], initial encounter
CPT/HCPCS: 36430; 43235 ×2; G0378; 36415; 70450; 71046; 80048; 80053; 81001; 82272; 83036; 83540; 83550; 84145; 84484; 85014; 85018; 85025; 85610; 85651; 86140; 86850; 87086; 93005; 96365; 99284; C9803; G0328; J2704; P9016; U0003; U0005

== ENCOUNTER → 2021-02-24 10:54 | Outpatient (CLI) | payer MEDICARE, OTHER, SELFPAY ==
[2021-02-24 11:26] LABS: Basophils % 0.6 % (0.1-2.0); Eosinophils # 0.1 K/mm3 (0.0-0.4); Eosinophils % 1.5 % (0.1-12.0); Hematocrit 30.7 % (42.0-52.0); Hemoglobin 9.5 g/dL (14.1-18.0); Lymphocytes # 1.3 K/mm3 (0.7-4.5); Lymphocytes % 20.3 % (10-50); Mean Corpuscular HGB Conc 30.8 g/dL (31.8-35.4); Mean Corpuscular Hemoglobin 29.3 pg (27.0-31.2); Mean Platelet Volume 8.9 fl (7.4-10.4); Monocytes # 0.5 K/mm3 (0.1-1.0); Monocytes % 7.6 % (1.7-9.3); Neutrophils # 4.3 K/mm3 (1.8-7.8); Neutrophils % 69.9 % (37.0-80.0); Platelet Count 263 K/mm3 (142-424); Red Blood Count 3.23 M/mm3 (4.60-6.20); Red Cell Distribution Width 14.9 % (11.5-17.5); White Blood Count 6.2 K/mm3 (4.8-10.8)
== END ==
PROVIDERS: PCP Internal Medicine Adolescent Medicine; Visit Provider Internal Medicine Adolescent Medicine
DX: D64.9 Anemia, unspecified (principal); K92.2 Gastrointestinal hemorrhage, unspecified
CPT/HCPCS: 36415; 85025

== ENCOUNTER → 2021-04-09 13:16 | Outpatient (CLI) | payer MEDICARE, OTHER, SELFPAY | PROVIDERS: Visit Provider Surgery | DX: Z01.812 Encounter for preprocedural laboratory examination (principal); Z11.52 Encounter for screening for COVID-19; Z13.810 Encounter for screening for upper gastrointestinal disorder | CPT/HCPCS: C9803; U0003; U0005 ==

== ENCOUNTER 2021-04-11 07:38 | Day surgery (SDC) | payer MEDICARE, OTHER, SELFPAY ==
[2021-04-11] VITALS (7 sets, daily range): BP systolic 104–133; BP diastolic 59–81; PULSE 50–55; RESP 16–18; TEMP 36.3; O2SAT 96–98; BMI 30.4
--- NOTE | 2021-04-11 07:14 | HMH.GSHP ---
HPI HPI: Patient presents for followup EGD. He had previously had a lap band performed by Dr. Bob Norton in 2010. He had not had any major issues. However, he presented with symptoms of symptomatic anemia, near syncope, and melena in February. He underwent EGD on 02/19/2021 and this revealed significant amount of retained food matter with no active bleeding. He had done well and remained on clear liquid diet. He had the lap band deflated and underwent repeat EGD on 02/21/2021. 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 He did well was discharged on Protonix. He has been doing well with no symptoms. Plan was made for followup EGD to assess resolution/healing of the presumed bleeding site. [facility] History I have reviewed the patient's past medical history: Yes Medical History: Reports:: Hyperlipidemia, Hypertension Denies:: Cancer, Diabetes Mellitus Type 1, Diabetes Mellitus Type 2, Internal Pacemaker, MRSA, Seizures *Have you ever received a pneumonia vaccine?: Yes *Have you received a flu vaccine this season?: No Other Medical History: Reports: Arthritis. Denies: Blood Transfusion Reaction Laterality Cases: Right: Arthroscopy Shoulder, Bilateral: Arthroscopy Knee Other Surgeries: Yes: Cardiac Catheterization, Cholecystectomy, EGD, Other (lap band, cochlear implant). No: Pacemaker Amputation: No Fractures: No - *Social History Smoking Status: Light tobacco smoker Tobacco Type: smokeless tobacco # Packs/Day (cigarettes): 1 Alcohol Intake: never Substance Use Type: denies use *Occupational Status:: retired Housing: house Household Members: spouse *Travel in the last 8 weeks: None Family Hx:: No significant family history Review of Systems - Review of Systems Review of systems:: pertinent systems reviewed and negative unless documented below Meds Home Medications Medication Instructions Recorded Confirmed Type Ascorbic Acid [Vitamin C 500mg 500 mg PO DAILY 02/17/21 02/27/21 History tablet] Multivitamin [Multi-Vitamin Plain] 1 tab PO DAILY 02/17/21 02/27/21 History Ubidecarenone [Co Q-10] 10 mg PO DAILY 02/17/21 02/27/21 History Pantoprazole Sodium [Protonix 40mg 40 tab PO DAILY 02/18/21 02/27/21 History tablet] Acetaminophen [Arthritis Pain] 2 tab PO BID 02/19/21 02/27/21 History Losartan Potassium 50 mg PO DAILY 02/19/21 02/27/21 History Allergies Allergy/AdvReac Type Severity Reaction Status Date / Time carisoprodol [From Soma] AdvReac Intermediate Hypotension Verified 02/27/21 09:36 Exam - Constitutional no acute distress - *Routine HEENT Exam Head: Present: normocephalic Eye: Absent: periorbital ecchymosis ENT: Present: other - *Routine Respiratory Exam Present: CTA bilaterally - *Routine Cardiovascular Exam Present: RRR - *Routine Abdominal Exam Present: soft - *Routine Rectal Exam Rectal:: deferred - *Routine Genitalia Exam Genitalia:: deferred Assessment and Plan - Assessment and plan all Dx Assessment and Plan for all problems:: Plan for EGD
--- NOTE | 2021-04-11 08:49 | HMH.ANESCL ---
[facility] Anesthesia Checklist - Patient Identification Patient Identification: Arm Band - Structural Data Admitted From: Home Planned Operative Procedure/s: egd Consent for Planned Operative Procedure(s) Verified: Yes Verified Documents: Surgical Consent, History and Physical - NPO Status Verified Time NPO: 00:00 - Additional verifications Anesthesia Reactions: No Hx Blood Transfusions: No Blood Transfusion Reaction: No - Airway Assessment C-Spine Mobility Assessed: Yes (mp2) TMJ Mobility Assessed: Yes Dentition: Good Dentition - Neurological Assessment Level of Consciousness: Awake, Alert - Anesthesia Plan Anesthesia Risk discussed: Yes Anesthesia Plan: Verified ASA Class: II Anesthesia Type: MAC [facility] History I have reviewed the patient's past medical history: Yes Medical History: Reports:: Hyperlipidemia, Hypertension Denies:: Cancer, Diabetes Mellitus Type 1, Diabetes Mellitus Type 2, Internal Pacemaker, MRSA, Seizures *Have you ever received a pneumonia vaccine?: Yes *Have you received a flu vaccine this season?: No Other Medical History: Reports: Arthritis. Denies: Blood Transfusion Reaction Anesthesia experience/problems:: nac Laterality Cases: Right: Arthroscopy Shoulder, Bilateral: Arthroscopy Knee Other Surgeries: Yes: Cardiac Catheterization, Cholecystectomy, EGD, Other (lap band, cochlear implant). No: Pacemaker Amputation: No Fractures: No - *Social History Last grade of school completed: 11th or 12th Smoking Status: Light tobacco smoker Tobacco Type: smokeless tobacco # Packs/Day (cigarettes): 1 Alcohol Intake: never Substance Use Type: denies use *Occupational Status:: retired Housing: house Household Members: spouse *Travel in the last 8 weeks: None Family Hx:: No significant family history
--- NOTE | 2021-04-11 09:00 | HMH.SCOPE ---
- Procedure: Date: 04/11/21 Patient Date of :: 1950 Procedure Performed:: Esophagogastroduodenoscopy with biopsies Indications:: Patient presents for followup EGD. He had previously had a lap band performed by Dr. Bob Norton in 2010. He had not had any major issues. However, he presented with symptoms of symptomatic anemia, near syncope, and melena in February. He underwent EGD on 02/19/2021 and this revealed significant amount of retained food matter with no active bleeding. He had done well and remained on clear liquid diet. He had the lap band deflated and underwent repeat EGD on 02/21/2021. 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 He did well was discharged on Protonix. He has been doing well with no symptoms. Plan was made for followup EGD to assess resolution/healing of the presumed bleeding site. Performing Provider:: Adriel Apple MD Referring Provider:: Jonathan Craft MD Sedation:: MAC sedation Procedure:: Patient was taken to endoscopy procedure room. He was positioned in lateral decubitus position. Adequate intravenous sedation was achieved with anesthesia titration of propofol. Olympus endoscope was inserted via the oropharynx. Esophagus was cannulated. Overall esophagus appeared unremarkable. Gastroesophageal junction was encountered at approximately 40 cm from the incisors. Stomach was cannulated. There was large amount of retained food matter and liquid within the proximal pouch. Visualization was poor. However the lumen at the site of the LAP-BAND was able to be identified and the endoscope was advanced to the distal stomach. There was still some liquid retained at this location as well but visualization was better in the distal stomach. Pylorus was traversed and endoscope was advanced to the third portion of the duodenum which appeared unremarkable. Endoscope was withdrawn into the stomach. Gastric antral mucosal biopsies obtained for CLOtest for H. pylori. Gastric antral mucosal biopsies obtained for histopathologic analysis. Inspection was carried out at the narrowing at the site of the band. There is no evidence of any erosion but the mucosa was rather friable and bled somewhat easily. As stated above however visualization was somewhat poor due to retained food matter. Endoscope was withdrawn into the distal esophagus and small biopsy was obtained at the gastroesophageal junction. Stomach was desufflated and the endoscope was withdrawn. Findings:: Retained food matter No obvious erosion Friable mucosa Gastroesophageal junction at 40 cm from the incisors Recommendations:: Visualization was somewhat suboptimal. However, given the patient's clinical course with no evidence of any recurrent bleeding and no obvious unhealed erosion or ulcer may not pursue repeat EGD. If repeat EGD is necessary he may need to be on a liquid diet for several days. He may have some degree of gastroparesis as well. Complications:: None immediately apparent Estimated blood obtained (mL): 2
== END 2021-04-11 09:50 | disposition home or self-care (01) ==
PROVIDERS: PCP Internal Medicine Adolescent Medicine; Visit Provider Surgery
PROC: 0DJ08ZZ Inspection of Upper Intestinal Tract, Via Natural or Artificial Opening Endoscopic (ICD-10-PCS; CPT 43235; principal; 2021-04-11 08:30)
DX: K21.00 Gastro-esophageal reflux disease with esophagitis, without bleeding (principal); K31.89 Other diseases of stomach and duodenum; Z98.84 Bariatric surgery status; Z87.19 Personal history of other diseases of the digestive system; E78.5 Hyperlipidemia, unspecified; I10 Essential (primary) hypertension; M19.90 Unspecified osteoarthritis, unspecified site; Z88.8 Allergy status to other drugs, medicaments and biological substances; D64.9 Anemia, unspecified; R55 Syncope and collapse
CPT/HCPCS: 43239; 87339; 88305

== ENCOUNTER → 2021-07-22 09:52 | Outpatient (POV) | payer MEDICARE, OTHER, SELFPAY | PROVIDERS: Visit Provider Dermatology | DX: Z00.00 Encounter for general adult medical examination without abnormal findings (principal) ==

== ENCOUNTER → 2022-01-26 08:42 | Outpatient (CLI) | payer MEDICARE, OTHER, SELFPAY ==
--- NOTE | 2022-01-26 08:47 | XR_ITS ---
FINAL REPORT CLINICAL HISTORY: Left knee pain FINDINGS: Three views of the left knee reveal no evidence of fracture or dislocation. The bony alignment is normal. There are [id number] degenerative changes. There are several loose bodies seen superior to the patella and in the anterior posterior aspect of the joint measuring up to 11 mm. IMPRESSION: Degenerative change with no acute abnormality identified. Reviewed, Interpreted and Dictated by Adriel Baptiste III, MD Transcribed by Chichi Dickinson Authenticated and [facility]
--- NOTE | 2022-01-26 08:47 | XR_ITS ---
FINAL REPORT CLINICAL HISTORY: Right knee pain FINDINGS: Three views of the right knee reveal no evidence of fracture or dislocation. The bony alignment is normal. There are mild and moderate degenerative changes, worse at the patellofemoral compartment. Loose bodies are seen in the posterior joint measuring up to 15 mm. There is spurring along the tibial tubercle. There is no evidence of joint effusion. No localized soft tissue abnormality is identified. IMPRESSION: Degenerative changes with no acute bony abnormality. Reviewed, Interpreted and Dictated by Adriel Baptiste III, MD Transcribed by Chichi Dickinson Authenticated and [facility]
--- NOTE | 2022-01-26 09:20 | CT_ITS ---
FINAL REPORT CLINICAL HISTORY: LOW BACK PAIN FINDINGS: Axial CT images of the lumbar spine were obtained after the intrathecal injection of contrast. Sagittal and coronal reformatted images were obtained. This study was performed with techniques to keep radiation doses as low as reasonably achievable (ALARA). Individualized dose reduction techniques using automated exposure control or adjustment of mA and/or kV according to the patient's size were employed. No acute fracture is identified. There are [id number] degenerative changes. There is mild rightward curvature. There are moderate vascular calcifications. T12-L1: An annular disc bulge is present with vertebral osteophytes. L1-2: An annular disc bulge is present with mild bilateral neural foraminal narrowing. L2-3: An annular disc bulge is present with vertebral osteophytes. There is moderate right and severe left neural foraminal narrowing. There is left foraminal soft tissue which likely represents a disc protrusion. There is left L3 nerve root impingement. L3-4: There is an annular disc bulge with facet arthropathy and vertebral osteophytes. There is severe bilateral neural foraminal narrowing. L4-5: There is an annular disc bulge with facet arthropathy and vertebral osteophytes. There is severe bilateral neural foraminal narrowing. L5-S1: There is partial sacralization of L5. An annular disc bulge is present. There is mild spurring of the SI joints. IMPRESSION: Probable disc protrusion at L2-3 with the left L3 nerve root impingement. Multilevel disc degenerative disc disease and spondylosis with neural foraminal narrowing as above. Reviewed, Interpreted and Dictated by Adriel Baptiste III, MD Transcribed by Liza Mari Authenticated and . [facility]
--- NOTE | 2022-01-26 09:30 | IR_ITS ---
FINAL REPORT CLINICAL HISTORY: RT SIDED LOW BACK PAIN fluoro time 1.11 FINDINGS: Lumbar myelogram HISTORY: Back pain. ATTENDING PHYSICIAN: Dr. Baptiste PHYSICIAN CLUB WAITER/WAITRESS: Fabian Valladares PA-C PROCEDURE: Informed consent was obtained. A time-out was performed, and the patient was prepped and draped in usual sterile fashion over the lumbar spine. Utilizing local anesthesia and direct fluoroscopic guidance, access to the thecal space was obtained at the L4-L5 level. 10 mL of Isovue 200M was injected. Contrast is identified in the thecal space. Flexion and extension views demonstrate no abnormal motion. There is mild multilevel degenerative change. FLUOROSCOPY TIME: 1 minute 11 seconds IMPRESSION: . Mild degenerative change. Please see CT scan report. Films reviewed , interpreted and dictated by Dr. Baptiste Transcribed by Fabian Valladares PA-C. Reviewed, Interpreted and Dictated by Adriel Baptiste III, MD Transcribed by BOBBY Ayala Authenticated and . [facility]
[2022-01-26 10:20] VITALS: BP 113/65; PULSE 58; RESP 17; TEMP 36.6; O2SAT 94
[2022-01-26 12:14] VITALS: BP 114/70; PULSE 50; RESP 18; O2SAT 95
--- NOTE | 2022-01-26 12:14 | PC.NURSE ---
Pt lying supine, lying flat since arrival to post-op area. No C/O. VSS. Pt ready to be discharged at 1220, 2 hours post procedure. Stable
== END ==
PROVIDERS: PCP Internal Medicine Adolescent Medicine; Visit Provider Internal Medicine Adolescent Medicine
DX: M54.31 Sciatica, right side (principal); M46.1 Sacroiliitis, not elsewhere classified; M19.90 Unspecified osteoarthritis, unspecified site; G89.4 Chronic pain syndrome
CPT/HCPCS: 62304; 72132; 73562; Q9966

== ENCOUNTER 2023-04-15 09:46 | Outpatient (CLI) | payer MEDICARE, OTHER, SELFPAY ==
--- NOTE | 2023-04-15 09:52 | XR_ITS ---
FINAL REPORT TECHNIQUE: Bone mineral density was calculated of the lumbar spine and hip. CLINICAL HISTORY: COMPRESSION FX COMPARISON: None FINDINGS: Using L1-4, the bone mineral density of the spine is 1.08 g/cm2, corresponding to T-score of -0.1. Using the left hip, the bone mineral density of the femoral neck is 0.92 g/cm2, corresponding to a T-score of -0.1. Using the right hip, the bone mineral density of the femoral neck is 0.93 g/cm?, corresponding to a T-score of 0. NOTE: T-score: Standard deviation compared with peak bone mass of young adult mean. *Following the recommendations of the International Society of Bone densitometry, classification of hip BMD is based on the lower of two T-scores; total hip or femoral neck. IMPRESSION: Normal bone mineral density of the lumbar spine and bilateral hips. Reviewed, Interpreted and Dictated by Adriel Baptiste III, MD Transcribed by Tasneem Phelps Authenticated and [facility]
[2023-04-15 11:42] LABS: Blood Urea Nitrogen 13 mg/dl (9-20); Estimated Glomerular Filt Rate 83 ml/min (>60); GFR (African American) 101 ML/MIN (>60)
== END 2023-04-15 23:59 ==
LOC: RAD 09:47
PROVIDERS: Neurological Surgery; PCP Internal Medicine Adolescent Medicine; Visit Provider Internal Medicine Adolescent Medicine
DX: M54.50 Low back pain, unspecified (principal); S32.000A Wedge compression fracture of unspecified lumbar vertebra, initial encounter for closed fracture
CPT/HCPCS: 36415; 77080; 82565; 84520